=== PATIENT | female | born 1940 | race Caucasian/White ===

== ENCOUNTER → 2021-12-29 | Outpatient (CLI) | payer MEDICARE, OTHER, SELFPAY ==
[2021-12-29 10:43] LABS: Potassium 4.5 mmol/L (3.5-5.1)
== END | disposition home or self-care (01) ==
PROVIDERS: PCP Internal Medicine; Visit Provider Internal Medicine
DX: E87.5 Hyperkalemia (principal)
CPT/HCPCS: 84132

== ENCOUNTER 2023-01-27 12:09 | Emergency (ER) | payer MEDICARE, OTHER, SELFPAY ==
[2023-01-27 12:10] VITALS: BP 134/78; PULSE 78; RESP 16; TEMP 36.4; O2SAT 98; BMI 30.4
--- NOTE | 2023-01-27 12:50 | EX.ED.DYSGE1 ---
HPI History of Present Illness Chief Complaint: Lower Extremity Injury PFSH PFSH Allergy/AdvReac Type Severity Reaction Status Date / Time No Known Allergies Allergy Verified 01/27/23 12:10 Social History Smoking Status: Never smoker EXAM Physical Exam Const Vital Signs: 01/27/23 12:10 Temperature 97.6 F L Temperature Source Temporal Pulse Rate 78 Respiratory Rate 16 Blood Pressure 134/78 H Blood Pressure Mean 96 Pulse Ox 98 Oxygen Delivery Method Room Air [facility] Narrative Medical decision making narrative: HISTORY OF PRESENT ILLNESS: 82-year-old female here with left left leg pain. She notes mechanical fall from standing. Notes immediate pain over left hamstring. She not fall on her hip She denies any head trauma loss of consciousness. Patient denies active cancer, being bedridden for greater than 3 days, denies unilateral leg swelling, denies any varicose veins, denies any calf tenderness, denies any edema. Denies major surgery within 12 weeks, recent paralysis, previous DVT. REVIEW OF SYSTEMS: Pertinent positives: Leg pain Pertinent negatives: Head trauma, focal weakness PHYSICAL EXAM: Nursing triage notes reviewed, Vital signs reviewed Constitutional: please see mdm HENT: MMM Eyes: Pupils equal round and reactive to light, Extraocular muscles intact Neck: No stridor, no JVD, full neck ROM Lungs: Clear to auscultation, No wheezing or rales. No increased work of breathing, no conversational dyspnea, no accessory muscle use, no nasal flaring. No respiratory distress noted Heart: Regular rate and rhythm, No murmurs, No rubs and No gallops, 2+ distal pulses (radial, femoral, posterior tibial) in all extremities Abdomen: Soft, there is no tenderness, rigidity, rebound or guarding, no obvious peritoneal signs, no palpable pulsatile abdominal masses, no auscultated abdominal bruit Extremities: No edema,, no obvious deformity, TTP over left hamstring muscle belly. Intact quadriceps tendon complex Neuro: Intact sensation L1-S1 dermatomal distributions. Intact 5/5 strength in hip flexion (T12-L3). Knee extension (L2-L4). Ankle dorsiflexion (L4-L5). Ankle plantar flexion (S1). Great toe extension (L5). 2+ patellar and Achilles DTRs. Skin: No rash or lesions noted MEDICAL DECISION MAKING: Chief Complaint: left leg pain External records reviewed: No recent advanced imaging of the involved ALL IMAGES (IF OBTAINED) HAVE BEEN PERSONALLY REVIEWED AND INTERPRETED BY MYSELF. MDM Narrative: Patient was hemodynamically stable, afebrile, nontoxic-appearing I considered the following differential diagnosis: Bony contusion, ligamentous injury, necrotizing fasciitis, septic arthritis, fracture, dislocation, arterial occlusion, DVT. Obtain x-ray to rule out any bony injury. X-ray was reviewed by myself and showed no evidence of bony injury. Patient is likely suffering from hamstring strain. No indication for further imaging or ED evaluation at this time. The patient and/or family, caregivers express understanding. The patient and/or family, caregivers agrees with the plan. Total critical care time today provided was at least 0 minutes. This excludes separately billable procedures. Critical care time (if documented) is secondary to the patient having high probability of clinically significant/life threatening deterioration in the patient's condition which required my urgent intervention. Shared decision making: I will have a discussion with the patient and or visitors regarding risk/benefits of further testing or admission. They will be made aware of of the risk/benefits inherent in this decision they will be given the opportunity to voice understanding. Radiography Diagnostic Testing: Clinical Impression(s) from Imaging Studies Femur X-Ray 01/27/23 13:49 IMPRESSION: No acute abnormality is seen. Electronically Signed: Alberto Moreno MD at 14:13 EDT , Discharge Plan Triage Chief Complaint: Lower Extremity Injury ED Provider: Prem Mccray Dx/Rx/DC Orders Clinical Impression: Hamstring muscle strain Instructions: Treating?Strains and Sprains Primary Care Provider: Yvonne Nesbitt Referrals: Yvonne Nesbitt, [Primary Care Provider] - Activity Restrictions/Additional Instructions: Thank you for trusting us with your care today! Please take Tylenol (2 pills, 650 mg), ibuprofen (2 pills, 400 mg) every 6 hours as needed for pain and fever control. Please return to the emergency department if your symptoms change or worsen. Please follow with your primary care physician for further outpatient evaluation and management. Disposition Disposition: Home, Self Care Discharge Date/Time: 01/27/23 14:59
--- NOTE | 2023-01-27 13:49 | RAD_ITS ---
STUDY: X-RAY - LEFT FEMUR REASON FOR STUDY: Female, 82 years old. Left hip pain. TECHNIQUE: 4 view(s) of the femur. COMPARISON: None. FINDINGS: Normal visualized femur. Normal visualized soft tissue structure. 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 Mask calcification. RAD/Femur Min 2 Views IMPRESSION: No acute abnormality is seen. Electronically Signed: Alberto Moreno MD at 14:13 EDT ,
== END 2023-01-27 14:59 | disposition home or self-care (01) ==
PROVIDERS: Emergency Provider Emergency Medicine; PCP Internal Medicine; Visit Provider Emergency Medicine
DX: S76.312A Strain of muscle, fascia and tendon of the posterior muscle group at thigh level, left thigh, initial encounter (principal); W18.30XA Fall on same level, unspecified, initial encounter
CPT/HCPCS: 73552; 99282

== ENCOUNTER 2025-01-24 12:53 | Inpatient (IN) | payer MEDICARE, OTHER, SELFPAY ==
[2025-01-24] VITALS (9 sets, daily range): BP systolic 178–188; BP diastolic 90–112; PULSE 78–99; RESP 14–18; TEMP 36.8–37.2; O2SAT 94–100; BMI 31.8; BMI 28.0
--- NOTE | 2025-01-24 14:07 | ED.VIS.FALL ---
HPI <GERRY Winslow - Last Filed: 01/24/25 15:31> HPI - Fall History of Present Illness Chief Complaint: Fall Narrative Narrative: 84-year-old male was walking with a self-propelled lawnmower and while turning slipped and fell onto her right hip. She denies head injury or LOC. She states she was unable to get up and her neighbor saw her and came over after about 2 minutes and called EMS. Patient is not on blood thinners. She states there is pain in her right hip and mid thigh. She has chronic right knee pain and swelling but it does not hurt from today's fall. She has no weakness or numbness or tingling. PFSH <GERRY Winslow - Last Filed: 01/24/25 15:31> [facility] Medical History Glaucoma Diabetes Home Medications ?Medication ?Instructions ?Recorded ?Last Taken ?Type dorzolamide 22.3 mg-timolol 6.8 1 drp ophthalmic (eye) QHS eye 01/24/25 Unknown History mg/mL eye drops latanoprost 0.005 % eye drops 1 drp ophthalmic (eye) BID eye heal 01/24/25 Unknown History Allergy/AdvReac Type Severity Reaction Status Date / Time No Known Allergies Allergy Verified 01/27/23 12:10 Family History (Updated 01/24/25 @ 16:[address] Celio Mendenhall DO) Father Heart disease Social History (Updated 01/24/25 @ 16:[address] Celio Mendenhall DO) Smoking Status: Never smoker alcohol intake: never substance use type: does not use ROS <GERRY Winslow - Last Filed: 01/24/25 15:31> ROS ED ROS Narrative CVS: Negative for chest pain, syncope. Respiratory: Negative for shortness of breath. GI: Negative for abdominal pain, nausea, vomiting. Neuro: Negative for motor/sensory dysfunction. Musc: Positive for right hip pain, trauma. EXAM <GERRY Winslow - Last Filed: 01/24/25 15:31> Physical Exam Narrative Exam Narrative: CONST: Patient sitting in no acute distress. EYES: Normal inspection. HEAD: Normocephalic atraumatic. NECK: Normal inspection. No midline spinal tenderness, no step off or crepitus. RESP: No respiratory distress, CTAB. CVS: Regular rate and rhythm, no murmur, no gallop. ABD: Soft and nontender, no guarding or rebound, nondistended. Back: Normal inspection, no midline tenderness. SKIN: Color normal, no rash, warm, dry, intact. EXTREMITIES: Normal appearance of upper extremities, full range of motion, nontender, 2+ radial pulses. Right leg is shortened and externally rotated with pain in the hip with movement. Right knee is chronically swollen but nontender. No other tenderness of lower extremities is present, normal sensation, able to dorsi and plantarflex, 2+ DP pulses. NEURO: Alert and answering questions appropriately. PSYCH: Normal affect. Const Vital Signs: 01/24/25 12:56 01/24/25 13:04 01/24/25 13:54 Temperature 98.9 F Temperature Source Oral Pulse Rate 92 95 Respiratory Rate 18 14 Respiratory Effort Normal Respiratory Depth Normal Respiratory Pattern Normal Blood Pressure 179/90 H 184/99 H Blood Pressure Mean 119 127 Pulse Ox 94 98 Oxygen Delivery Method Room Air Room Air <Dr. Celio Paredes DO - Last Filed: 01/24/25 22:10> Physical Exam Const Vital Signs: 01/24/25 12:56 01/24/25 13:04 01/24/25 13:54 Temperature 98.9 F Temperature Source Oral Pulse Rate 92 95 Respiratory Rate 18 14 Respiratory Effort Normal Respiratory Depth Normal Respiratory Pattern Normal Blood Pressure 179/90 H 184/99 H Blood Pressure Mean 119 127 Pulse Ox 94 98 Oxygen Delivery Method Room Air Room Air [facility] <GERRY Winslow - Last Filed: 01/24/25 15:31> [facility] Narrative Medical decision making narrative: Consults: Orthopedics, hospitalist Differential: Hip fracture, pelvic fracture, contusion 84 old female had a mechanical fall injuring her right hip. No head injury or LOC. Arrives awake alert. She is hypertensive at 184/99 with otherwise normal vital signs. Right leg is shortened and rotated with hip pain with logroll. CMP neurovascularly intact. She has no other signs of injury. Right hip x-ray shows acute intertrochanteric fracture. I consulted Dr. Swift who requested preop labs and n.p.o. at midnight for surgery tomorrow. I discussed the case with the hospitalist for admission. Lab Data Attestation: I reviewed the patient's lab results. Labs: Laboratory Results - last 24 hr 01/24/25 15:00 WBC 7.2 RBC 4.45 Hgb 12.9 Hct 38.7 MCV 87.0 MCH 29.0 MCHC 33.3 RDW Std Deviation 40.3 RDW Coeff of Jasmin 12.7 Plt Count 262 MPV 10.6 Immature Gran % (Auto) 0.700 Neut % (Auto) 82.4 H Lymph % (Auto) 9.8 L [place] % (Auto) 6.1 Eos % (Auto) 0.4 Baso % (Auto) 0.6 Absolute Neuts (auto) 5.9 Absolute Lymphs (auto) 0.70 L Nucleated RBC % 0 Radiography Diagnostic Testing: Clinical Impression(s) from Imaging Studies Femur X-Ray 01/24/25 14:15 IMPRESSION: Nondisplaced right intertrochanteric fracture. Degenerative changes of the knee joint. Reading Location: [place] [address] Pelvis X-Ray 01/24/25 14:15 IMPRESSION: Nondisplaced oblique fracture of the intertrochanteric region of the proximal right femur with cephalic migration of the distal fracture fragment. Reading Location: [place] [address] ED attending interpretation of right hip shows intertrochanteric fracture. The femur shows no additional fractures. EKG Initial EKG: Attestation: I personally reviewed and interpreted this EKG as follows: Interpretation: Sinus Rhythm and No Acute Injury Pattern Comments: Sinus rhythm with PACs at [address] changes, no STEMI <Dr. Celio Paredes, DO - Last Filed: 01/24/25 22:10> [facility] Lab Data Labs: Laboratory Results - last 24 hr 01/24/25 15:00 WBC 7.2 RBC 4.45 Hgb 12.9 Hct 38.7 MCV 87.0 MCH 29.0 MCHC 33.3 RDW Std Deviation 40.3 RDW Coeff of Jasmin 12.7 Plt Count 262 MPV 10.6 Immature Gran % (Auto) 0.700 Neut % (Auto) 82.4 H Lymph % (Auto) 9.8 L [place] % (Auto) 6.1 Eos % (Auto) 0.4 Baso % (Auto) 0.6 Absolute Neuts (auto) 5.9 Absolute Lymphs (auto) 0.70 L Nucleated RBC % 0 Radiography Diagnostic Testing: Clinical Impression(s) from Imaging Studies Femur X-Ray 01/24/25 14:15 IMPRESSION: Nondisplaced right intertrochanteric fracture. Degenerative changes of the knee joint. Reading Location: [facility] Pelvis X-Ray 01/24/25 14:15 IMPRESSION: Nondisplaced oblique fracture of the intertrochanteric region of the proximal right femur with cephalic migration of the distal fracture fragment. Reading Location: [facility] Treatment and Re-Evaluation Narrative: I have personally performed a face to face assessment of the patient and have reviewed the ALESSANDRA Note. I performed a substantive portion of the visit including all aspects of the following. My parker findings include: History: Patient presents after a fall that occurred today. Patient fell while mowing her yard. Patient landed on her right side. Patient complains of discomfort in her right hip and thigh. Patient was unable to stand after the fall. Patient states her neighbor came out immediately after she fell. Patient denies any head injury or loss of consciousness. Patient denies any other injuries. Exam: Vital signs are stable save for an elevated blood pressure of 179/90. Patient is afebrile. Patient is in no acute distress. Oral mucosa is pink and moist. Neck is supple. Trachea is midline. Heart was regular rate and rhythm. Lungs are clear and equal bilaterally. There is good respiratory effort noted. Abdomen is soft. Bowel sounds are normal. There is no tenderness. There is mild tenderness over the right hip and femur. The right lower extremity is shortened and externally rotated. Range of motion was limited in all motions of the right lower extremity secondary to pain. There is pain with internal and external rotation of the right lower extremity. Pedal pulses are equal bilaterally. Sensation was intact to light touch in all digits. Medical Decision Making: Differential diagnosis includes hip fracture, contusion, and sprain. X-rays of the right femur and pelvis will be obtained to assess for fracture. X-rays of the pelvis were reviewed. There is 1 view. On my independent interpretation, there is a intertrochanteric fracture of the right hip. There is some mild displacement of the distal fragment. Radiologist also interpreted the x-ray and agrees. X-rays of the right femur were obtained. There are 4 views. On my independent interpretation, there is an intertrochanteric fracture of the right hip. There are degenerative changes of the right knee. Radiologist also interpreted the x-rays and agrees. EKG was obtained to assess for cardiac dysrhythmia and cardiac ischemia. On my independent interpretation, it showed normal sinus rhythm with occasional PACs with a rate of 98. There are nonspecific ST-T wave changes. There there is no ST elevation. Case was discussed with the hospitalist. He will admit the patient to his service. Case was discussed with Dr. Swift from orthopedics. He recommended keeping the patient n.p.o. after midnight. He will see the patient in the hospital. Patient understood and was agreeable with the plan. All questions were answered. Discharge Plan Dx/Rx/DC Orders Clinical Impression: Closed fracture of right hip, Fall Disposition Disposition: Acute Care Hospital [facility] Discharge Date/Time: 01/24/25 18:25
--- NOTE | 2025-01-24 14:15 | RAD_ITS ---
PROCEDURE: PELVIS 1 OR 2 VIEWS 01/24/2025 REASON FOR EXAM: PAIN Fall. TECHNIQUE: PELVIS 1 OR 2 VIEWS COMPARISON: None FINDINGS: Oblique fracture of the intertrochanteric region of the proximal right femur with cephalic migration of the distal fracture fragment. Fecal material is seen in the colon. RAD/Pelvis 1 or 2 Views IMPRESSION: Nondisplaced oblique fracture of the intertrochanteric region of the proximal r ight femur with cephalic migration of the distal fracture fragment. Reading Location: [facility]
--- NOTE | 2025-01-24 14:15 | RAD_ITS ---
PROCEDURE: FEMUR MIN 2 VIEWS 01/24/2025 REASON FOR EXAM: PAIN History of fall. TECHNIQUE: FEMUR MIN 2 VIEWS COMPARISON: None FINDINGS: Nondisplaced right intertrochanteric fracture. Degenerative changes of the knee joint. RAD/Femur Min 2 Views IMPRESSION: Nondisplaced right intertrochanteric fracture. Degenerative changes of the knee joint. Reading Location: [facility]
[2025-01-24 15:15] LABS: Hematocrit 38.7 % (37-47); Hemoglobin 12.9 g/dL (12.0-15.0); Immature Granulocytes Count 0.050 X10^3/uL (0.0-0.0); Mean Corp Hgb Conc 33.3 g/dL (32-36); Mean Corpuscular Volume 87.0 fL (81-99); Mean Platelet Vol. 10.6 fl (6.2-12.0); NRBC Flagged by Analyzer 0 % (0-5); Platelet Count 262 K/mm3 (150-450); RBC Distribution Width CV 12.7 % (11.6-14.6); RBC Distribution Width SD 40.3 fl (35.1-43.9); Red Blood Count 4.45 M/mm3 (4.2-5.4); White Blood Count 7.2 K/mm3 (4.4-11.0)
[2025-01-24 15:30] LABS: Prothrombin Time (Protime)PT. 13.7 SECONDS (11.7-14.9)
--- NOTE | 2025-01-24 16:13 | PCM.HP.STD ---
HPI - General General Date of Service: 01/24/25 Chief Complaint: Fall and right hip pain HPI Narrative [place], is a 84 F who presents with hip pain after a fall. Is an 84-year-old female with diabetes who does not take medications was in her yard and twisted her hip and then fell landing on her right side pain. Presented to the emergency room and was noted to have a nondisplaced oblique fracture of the intertrochanteric region of the proximal right femur with cephalic migration of the distal fracture fragment. Dr. Swift of orthopedics was contacted and will see the patient in consultation. [facility] Medical History Glaucoma Diabetes Allergy/AdvReac Type Severity Reaction Status Date / Time No Known Allergies Allergy Verified 01/27/23 12:10 Family History (Updated 01/24/25 @ 16:[address] Celio Mendenhall DO) Father Heart disease Social History (Updated 01/24/25 @ 16:[address] Celio Mendenhall DO) Smoking Status: Never smoker alcohol intake: never substance use type: does not use ROS ROS Narrative All review of systems were negative except as mentioned above in the history of present illness and the other review of systems. Vital Signs Vital Signs Vital Signs: 01/24/25 12:56 01/24/25 13:04 01/24/25 13:54 Temperature 37.2 C Temperature Source Oral Pulse Rate 92 95 Respiratory Rate 18 14 Respiratory Effort Normal Respiratory Depth Normal Respiratory Pattern Normal Blood Pressure 179/90 H 184/99 H Blood Pressure Mean 119 127 Pulse Ox 94 98 Oxygen Delivery Method Room Air Room Air 01/24/25 15:00 Temperature Temperature Source Pulse Rate 96 Respiratory Rate 18 Respiratory Effort Respiratory Depth Respiratory Pattern Blood Pressure 178/110 H Blood Pressure Mean 132 Pulse Ox 96 Oxygen Delivery Method Room Air Weight Weight: 78.9 kg Body Mass Index (BMI) 31.8 Physical Exam Narrative - Physical Exam General: Alert, Oriented x3, Cooperative HEENT: Atraumatic, PERRLA, EOMI, Normocephalic Oral: Very poor dentition. Neck: Supple, No JVD, Negative Carotid Bruits Lungs: Clear to auscultation, Normal air movement Cardiovascular: Regular rate, Normal S1, Normal S2, No murmurs Abdomen: Bowel Sounds Present, Soft, Non Tender, Non-Distended, No Hepato-splenomegaly Extremities: Shortened right lower extremity.. Skin: No rashes, No breakdown Musculoskeletal: No Tenderness to Palpation of Joints or Extremities Neurological: Neuro grossly intact Psych/Mental Status: Normal Affect, Appropriate Results Lab / Micro Data Attestation: I reviewed the patient's lab results. 01/24/25 15:00 01/24/25 15:00 Labs: Laboratory Results - last 24 hr 01/24/25 15:00: WBC 7.2, RBC 4.45, Hgb 12.9, Hct 38.7, MCV 87.0, MCH 29.0, MCHC 33.3, RDW Std Deviation 40.3, RDW Coeff of Jasmin 12.7, Plt Count 262, MPV 10.6, Immature Gran % (Auto) 0.700, Neut % (Auto) 82.4 H, Lymph % (Auto) 9.8 L, [place] % (Auto) 6.1, Eos % (Auto) 0.4, Baso % (Auto) 0.6, Absolute Neuts (auto) 5.9, Absolute Lymphs (auto) 0.70 L, Nucleated RBC % 0, PT 13.7, INR 1.0, Blood Type A POSITIVE, Antibody Screen NEGATIVE EKG Initial EKG: Attestation: I personally reviewed and interpreted this EKG as follows: Prior EKG tracings: available for review Imaging Radiology Impression Femur X-Ray 01/24/25 14:15 IMPRESSION: Nondisplaced right intertrochanteric fracture. Degenerative changes of the knee joint. Reading Location: [facility] Pelvis X-Ray 01/24/25 14:15 IMPRESSION: Nondisplaced oblique fracture of the intertrochanteric region of the proximal right femur with cephalic migration of the distal fracture fragment. Reading Location: [facility] Assessment & Plan Assessment/Plan (1) Closed fracture of right hip: PLAN: Status post mechanical fall. Bedrest for now. Pain control. Check 25-hydroxy vitamin D level Consult orthopedics. Patient has a good performance status at baseline does not have any chest pain or palpitations. Will with remainder of her lab work but patient should be medically ready for surgery PLAN: Plan Diabetes mellitus type 2: Has an A1c reported of 13. She has refused medications including insulin in the past because of side effects. She said the side effects of it have some ado of heart attack or stroke. I asked her specifically what her concerns were but she cannot informing what side effects she was actually worried about. I discussed with her the very importance of being on insulin given reported history of A1c that high. She said that she will comply with what we recommend while she is in the hospital but made no promise that she would continue that when she is discharged. I did try to reassure her that we would be checking her blood sugar when she was here. Glucose was 329 a BMP. Will start glargine 15 units nightly with first dose tonight. Hypertension: May be reactive but unclear if she does have chronic primary hypertension. Will monitor for now. VTE prophylaxis: SCDs for now. CODE STATUS: Addressed with the patient. Patient wishes to be DNR Comfort Care arrest. Explained the patient that she may change her mind at any point if she still wishes. Case discussed with the patient's nephew is present at bedside. Charges/Coding Visit Charges Inpatient E&M: 32232 Init Hosp L2
[2025-01-24 16:29] LABS: Anion Gap 14 (5-15); BUN 18 mg/dL (4-19); BUN/Creat Ratio 29.8 RATIO (10-20); Calcium,Total 9.3 mg/dL (7.6-11.0); Carbon Dioxide 22.5 mmol/L (21.0-32.0); Chloride 101 mmol/L (98-108); Estimated Creatinine Clearance 49.10 ml/min (50-250); Glucose 329 mg/dL (70-99); Potassium 4.2 mmol/L (3.3-5.1)
--- NOTE | 2025-01-24 17:06 | CON.PCM.OR_ITS ---
HPI Consult Data Date of Consult: 01/24/25 HPI Narrative Reason for Consultation: Right hip fracture HPI Narrative: GOOD CASAS, is a 84 F who presented to [facility] emergency department today after mechanical ground-level fall onto her right hip. She denies any antecedent right hip or groin pain. Denies head injury or loss consciousness or syncopal symptoms. Community ambulator without assistive device. X-rays were obtained demonstrated a right intertrochanteric femur fracture. She is admitted to the service of the hospitalist. I saw patient in consultation. At time my examination, she reports no pain at rest. She denies any other new injuries. Denies numbness or tingling. Denies fevers, chills, nausea or vomiting, chest pain or shortness of breath. Denies any anesthetic complication in the past. Denies history of DVT or PE. [facility] Medical History Glaucoma Diabetes Allergy/AdvReac Type Severity Reaction Status Date / Time No Known Allergies Allergy Verified 01/27/23 12:10 Family History (Updated 01/24/25 @ 16:[address] Celio Mendenhall DO) Father Heart disease Social History (Updated 01/24/25 @ 16:[address] Celio Mendenhall DO) Smoking Status: Never smoker alcohol intake: never substance use type: does not use ROS ROS Narrative 12 point review of systems obtained, negative unless otherwise noted in HPI. Vital Signs Vital Signs Vital Signs: 01/24/25 12:56 01/24/25 13:04 01/24/25 13:54 Temperature 98.9 F Temperature Source Oral Pulse Rate 92 95 Respiratory Rate 18 14 Respiratory Effort Normal Respiratory Depth Normal Respiratory Pattern Normal Blood Pressure 179/90 H 184/99 H Blood Pressure Mean 119 127 Pulse Ox 94 98 Oxygen Delivery Method Room Air Room Air 01/24/25 15:00 Temperature Temperature Source Pulse Rate 96 Respiratory Rate 18 Respiratory Effort Respiratory Depth Respiratory Pattern Blood Pressure 178/110 H Blood Pressure Mean 132 Pulse Ox 96 Oxygen Delivery Method Room Air Weight Weight: 173 lb 15.115 oz Body Mass Index (BMI) 31.8 Physical Exam Narrative General -A&Ox3, NAD, appears stated age. Vital signs stable, afebrile. Respiratory -normal work of breathing, no intercostal retractions. CV -pulses regular, brisk capillary refill ?4 limbs. Abdomen-soft, nontender, nondistended. No guarding, rigidity, rebound tenderness. Musculoskeletal/neurologic -full range of motion nontender throughout bilateral upper extremities, left lower extremity with full sensation and strength in all dermatomes and myotomes. No midline cervical tenderness. Right lower extremity-shortened, externally rotated and abducted. Pain with logroll of the right lower extremity. Nontender throughout the right knee femoral shaft, tibial shaft and right foot/ankle. Brisk capillary refill. Sensation intact light touch L3-S1 dermatomes. DF, PF, EHL intact. DP, PT 2+. Pelvis is stable, nontender. Skin is intact without lacerations, abrasions. No ecchymosis noted. Lab / Micro Data 01/24/25 15:00 01/24/25 15:00 Labs: Laboratory Results - last 24 hr 01/24/25 15:00: WBC 7.2, RBC 4.45, Hgb 12.9, Hct 38.7, MCV 87.0, MCH 29.0, MCHC 33.3, RDW Std Deviation 40.3, RDW Coeff of Jasmin 12.7, Plt Count 262, MPV 10.6, Immature Gran % (Auto) 0.700, Neut % (Auto) 82.4 H, Lymph % (Auto) 9.8 L, Clarke % (Auto) 6.1, Eos % (Auto) 0.4, Baso % (Auto) 0.6, Absolute Neuts (auto) 5.9, A bsolute Lymphs (auto) 0.70 L, Nucleated RBC % 0, PT 13.7, INR 1.0, Sodium 137, Potassium 4.2, Chloride 101, Carbon Dioxide 22.5, Anion Gap 14, BUN 18, C reatinine 0.62 L, Estim Creat Clear Calc 49.10 L, Est GFR (MDRD) Non-Af 87, B UN/Creatinine Ratio 29.8 H, Glucose 329 H, Calcium 9.3, Blood Type A POSITIVE, Antibody Screen NEGATIVE Imaging Radiology Impression Femur X-Ray 01/24/25 14:15 IMPRESSION: Nondisplaced right intertrochanteric fracture. Degenerative changes of the knee joint. Reading Location: [facility]-IR-1 Pelvis X-Ray 01/24/25 14:15 IMPRESSION: Nondisplaced oblique fracture of the intertrochanteric region of the proximal right femur with cephalic migration of the distal fracture fragment. Reading Location: [facility]-1 Assessment & Plan Assessment/Plan (1) Closed fracture of right hip: QUALIFIERS: Encounter type: initial encounter Qualified Code(s): S72.001A - Fracture of unspecified part of neck of right femur, initial encounter for closed fracture PLAN: Patient sustained a right intertrochanteric proximal femur fracture. -Closed, neurovascularly intact -Isolated injury -Recommending surgical intervention in the form of right femur cephalomedullary nailing -I discussed the procedure-its risks, benefits and alternative. Risks include but are not limited to bleeding, infection, loss of life or limb, risk of anesthesia, persistent pain or disability, need for additional surgery, nonunion, malunion, failure of orthopedic hardware, neurovascular injury, DVT or PE. Patient expressed understanding these risks and wished to proceed with surgery. -Maintenance IV fluids, clear liquid diet after midnight n.p.o. at 2 hours prior to surgery -Medical optimization per primary -Type and screen -2 g Ancef, 1 g IV TXA on-call to the OR -Bedrest, heel protectors -Plan to proceed with surgery tomorrow when OR becomes available Thank you for this consultation.
--- NOTE | 2025-01-24 18:55 | CASEMGMT ---
Care Management Face to Face with patient for initial transition planning/care coordination assessment in the ED.? This loan underwriter introduced self and role at [facility]. Patient alert and oriented. Patient willing to participate in assessment and is able to answer all questions appropriately.? Care providers, pharmacy, and demographics verified. Admitting Diagnosis: ?closed fx right hip Other diagnosis history: ?Glaucoma, diabetes PCP: ?[facility] Specialists: ?None Preferred Pharmacy:? [facility] Insurance: ?Medicare Prescription Benefit: ?yes Living Will/HPOA: ?both completed LNOK: ?nephew Living Arrangements: ?lives alone in a 2 story home, lives on the first floor.? ?Has a ramp into home with one step to enter, has freezers in her basement with 12 steps down. Patient independent with ADLs and IADLs Transportation: ?Patient drives DME: ?None HHC: None SNF/Rehab: ?None Community Resources: ?None Behavioral Health History: ?None Patient goals: Discharge plans uncertain.? Disposition Plan: admission to acute; RN CM/SW to follow for discharge planning needs that may arise. Kinsey Nicholson, CHIEF DEPUTY SHERIFF, SUPERVISOR HEAT TREATING
[2025-01-24 20:15] LABS: AST(SGOT) 18 U/L (<=31); Alanine Aminotransfer ALT/SGPT 20 U/L (<=34); Albumin, Serum 4.1 g/dL (3.4-4.8); Alkaline Phosphatase 86 U/L (35-104); Anion Gap 16 (5-15); BUN 15 mg/dL (4-19); BUN/Creat Ratio 24.0 RATIO (10-20); Calcium,Total 9.4 mg/dL (7.6-11.0); Carbon Dioxide 22.3 mmol/L (21.0-32.0); Chloride 98 mmol/L (98-108); Estimated Creatinine Clearance 46.08 ml/min (50-250); Globulin 3.1 g/dL (2.2-4.2); Glucose 334 mg/dL (70-99); Potassium 4.0 mmol/L (3.3-5.1)
[2025-01-24] MEDS: Insulin Glargine-YFGN 100 UNIT/ML Pen 15 UNIT SC (21:30)
[2025-01-24 21:46] LABS: Vitamin D,25 Hydroxy 52.8 ng/mL (30-100)
[2025-01-24] MEDS: Dorzolamide HCL/Timolol 10 ml Bottle 1 DRP OPHTHALMIC (22:43)
[2025-01-24] MEDS: Latanoprost 0.005% 1 Bottle 1 DRP OPHTHALMIC (22:44)
[2025-01-24] MEDS: Senna/Docusate Sodium 1 Tablet 2 TABLET PO (23:00)
[2025-01-25] VITALS (20 sets, daily range): BP systolic 78–173; BP diastolic 57–91; PULSE 68–117; RESP 16–22; TEMP 36.3–37.1; O2SAT 88–100; BMI 27.8
[2025-01-25 06:07] LABS: Hematocrit 38.6 % (37-47); Hemoglobin 12.8 g/dL (12.0-15.0); Immature Granulocytes Count 0.050 X10^3/uL (0.0-0.0); Mean Corp Hgb Conc 33.2 g/dL (32-36); Mean Corpuscular Volume 88.1 fL (81-99); Mean Platelet Vol. 11.3 fl (6.2-12.0); NRBC Flagged by Analyzer 0 % (0-5); Platelet Count 276 K/mm3 (150-450); RBC Distribution Width CV 12.8 % (11.6-14.6); RBC Distribution Width SD 41.4 fl (35.1-43.9); Red Blood Count 4.38 M/mm3 (4.2-5.4); White Blood Count 9.2 K/mm3 (4.4-11.0)
[2025-01-25 06:14] LABS: Prothrombin Time (Protime)PT. 14.6 SECONDS (11.7-14.9)
--- NOTE | 2025-01-25 07:17 | PN.HOSP_ITS ---
Reason for Visit Reason for Visit: Diagnoses Fracture of unspecified part of neck of right femur, initial encounter for closed fracture (01/24/25) Subjective Subjective No new issues overnight. On her way to surgery this AM. Objective Data Objective Data Vital Signs: Vital Signs Temp Pulse Resp BP Pulse Ox O2 Del Method 36.8 C 96 16 158/88 H 97 Room Air 01/25/25 01:59 01/25/25 02:00 01/25/25 01:59 01/25/25 01:59 01/25/25 01:59 01/25/25 01:59 Oxygen Delivery Method Room Air Weight: 69.4 kg Body Mass Index (BMI) 28.0 Intake & Output: Intake and Output for Last 24 Hours 01/23/25 01/24/25 01/25/25 23:59 23:59 23:59 Intake Total 400 / 400 Output Total 500 / 500 Balance -100 / -100 Lab / Micro Data 01/25/25 05:10 01/24/25 19:41 Labs: Laboratory Results - last 24 hr 01/24/25 15:00: WBC 7.2, RBC 4.45, Hgb 12.9, Hct 38.7, MCV 87.0, MCH 29.0, MCHC 33.3, RDW Std Deviation 40.3, RDW Coeff of Jasmin 12.7, Plt Count 262, MPV 10.6, Immature Gran % (Auto) 0.700, Neut % (Auto) 82.4 H, Lymph % (Auto) 9.8 L, Glenn % (Auto) 6.1, Eos % (Auto) 0.4, Baso % (Auto) 0.6, Absolute Neuts (auto) 5.9, A bsolute Lymphs (auto) 0.70 L, Nucleated RBC % 0, PT 13.7, INR 1.0, Sodium 137, Potassium 4.2, Chloride 101, Carbon Dioxide 22.5, Anion Gap 14, BUN 18, C reatinine 0.62 L, Estim Creat Clear Calc 49.10 L, Est GFR (MDRD) Non-Af 87, B UN/Creatinine Ratio 29.8 H, Glucose 329 H, Calcium 9.3, Blood Type A POSITIVE, Antibody Screen NEGATIVE 01/24/25 19:41: Sodium 136, Potassium 4.0, Chloride 98, Carbon Dioxide 22.3, A nion Gap 16 H, BUN 15, Creatinine 0.63 L, Estim Creat Clear Calc 46.08 L, Est GFR (MDRD) Non-Af 87, BUN/Creatinine Ratio 24.0 H, Glucose 334 H, Calcium 9.4, Total Bilirubin 0.61, AST 18, ALT 20, Alkaline Phosphatase 86, Total Protein 7.2, Albumin 4.1, Globulin 3.1, Albumin/Globulin Ratio 1.3, Vitamin D 25-Hydroxy 52.8 01/24/25 21:28: POC Glucose 375 H 01/25/25 05:10: WBC 9.2, RBC 4.38, Hgb 12.8, Hct 38.6, MCV 88.1, MCH 29.2, MCHC 33.2, RDW Std Deviation 41.4, RDW Coeff of Jasmin 12.8, Plt Count 276, MPV 11.3, Immature Gran % (Auto) 0.500, Neut % (Auto) 82.8 H, Lymph % (Auto) 9.0 L, Glenn % (Auto) 7.3, Eos % (Auto) 0.1, Baso % (Auto) 0.3, Absolute Neuts (auto) 7.7, Absolute Lymphs (auto) 0.83, Nucleated RBC % 0, PT 14.6, INR 1.1, Hemoglobin A1c 13.6 H Radiography Diagnostic Testing: Radiology Impression Femur X-Ray 01/24/25 14:15 IMPRESSION: Nondisplaced right intertrochanteric fracture. Degenerative changes of the knee joint. Reading Location: [facility]-IR-1 Pelvis X-Ray 01/24/25 14:15 IMPRESSION: Nondisplaced oblique fracture of the intertrochanteric region of the proximal right femur with cephalic migration of the distal fracture fragment. Reading Location: [facility]-1 Physical Exam Const alert Constitutional Narrative: Seen before surgery. Patient was lying in bed with shortened right lower extremity compared to her left. No respiratory stress. No conversational dyspnea. HEENT head/scalp atraumatic Resp normal respiratory effort and no retractions Extremity normal to inspection Neuro Sensorium / Orientation: awake and alert Assessment & Plan Assessment/Plan (1) Closed fracture of right hip: QUALIFIERS: Encounter type: initial encounter Qualified Code(s): S72.001A - Fracture of unspecified part of neck of right femur, initial encounter for closed fracture PLAN: Status post mechanical fall. Bedrest for now. Pain control. 25-hydroxy vitamin D level 52.8. Will start ergocalciferol. Consult orthopedics. Patient has a good performance status at baseline does not have any chest pain or palpitations. Medically stable for surgery. PLAN: Plan Diabetes mellitus type 2, uncontrolled: * A1c 13.6. * She has refused outpatient medications including insulin in the past because of side effects. She said the side effects of it have some ado of heart attack or stroke. I asked her specifically what her concerns were but she cannot informing what side effects she was actually worried about. I discussed with her the very importance of being on insulin given reported history of A1c that high. She said that she will comply with what we recommend while she is in the hospital but made no promise that she would continue that when she is discharged. I did try to reassure her that we would be checking her blood sugar when she was here. * Continue glargine, anticipate up titrating, but awaiting AM labs. Currently NPO for surgery. Hypertension: * elevated while here. Will start ACEi. PRN hydralazine VTE prophylaxis: SCDs for now. CODE STATUS: Addressed with the patient. Patient wishes to be DNR Comfort Care arrest. Explained the patient that she may change her mind at any point if she still wishes. Disposition: eventually to SNF. Charges/Coding Visit Charges Inpatient E&M: 75380 Subs Hosp L2
[2025-01-25] MEDS: Latanoprost 0.005% 1 Bottle 1 DRP OPHTHALMIC ×2 (09:15→22:05)
--- NOTE | 2025-01-25 09:29 | PCM.PRE.AN2 ---
ASA Classification* ASA Classification ASA Classification: 2 and E Assessment & Plan Anesthesia* Anesthesia Assessment Anesthesia Assessment: Discussed sedation and/or anesthesia options, risks, benefits, and alternatives with patient/parents/legal guardian/POA. Questions invited. The patient/parents/legal guardian/POA seems to understand and agrees to proceed with anesthesia plan. Reviewed the physical assessment, medical history, allergy history and patient home medications list prior to surgery/procedure/anesthetic and documented any changes. Performed airway and anesthesia risk assessments. Anesthesia Type Anesthesia Type: General Anesthesia Focused Assessment* Temperature: 98.2 F Pulse Rate: 96 Blood Pressure: 158/88 Respiratory Rate: 16 Pulse Ox: 97 Airway Assessment Mouth opens: >3 cm Mallampati Score: II Labs Anesthesia Preop lab: CBC WBC 9.2 K/mm3 (4.4-11.0) 01/25/25 05:10 01/25/25 RBC 4.38 M/mm3 (4.2-5.4) 01/25/25 05:10 01/25/25 Hgb 12.8 g/dL (12.0-15.0) 01/25/25 05:10 01/25/25 Hct 38.6 % (37-47) 01/25/25 05:10 01/25/25 Plt Count 276 K/mm3 (150-450) 01/25/25 05:10 01/25/25 CHEMISTRY Potassium 4.0 mmol/L (3.3-5.1) 01/24/25 19:41 01/24/25 Sodium 136 mmol/L (133-145) 01/24/25 19:41 01/24/25 BUN 15 mg/dL (4-19) 01/24/25 19:41 01/24/25 Creatinine 0.63 mg/dL (0.70-1.20) L 01/24/25 19:41 01/24/25 Glucose 334 mg/dL (70-99) H 01/24/25 19:41 01/24/25 POC Glucose 272 mg/dL (74-106) H 01/25/25 06:21 01/25/25 COAG PT 14.6 SECONDS (11.7-14.9) 01/25/25 05:10 01/25/25 Pre-Assessment Diagnosis/Proposed Procedure Planned Operative Procedure(s): Gamma Nail Right Hip fracture Anesthesia History Anesthesia History - superintendent division: Anesthesia History - superintendent division Hx Hospitalization Any Problems With Anesthesia No 01/25/25 04:18 Cholinesterase deficiency No 01/25/25 04:18 You/Your Family Experience No 01/25/25 04:18 fever (hyperthermia) with Relationship Recent Exposure to Contagious No 01/25/25 04:18 Disease Does patient have nerve No 01/25/25 04:18 stimulator Patient instructed to have device shut off --Does patient have Pacemaker or ICD? When Was Last Pacemaker Check QUESTION #4 FULL TEXT: You/Your Family Experience fever (hyperthermia) with Anesthesia Last Oral Intake Last Oral intake: Last Oral Intake NPO since Meds taken in AM with sips of water? Meds patient instructed to take am of surgery PONV PONV - superintendent division: PONV - superintendent division Female HX of Motion Sickness HX of N/V After Surgery Non-Smoker Duration of Surgery greater than 60 minutes Number of Risk Factors PONV Score Height & Weight Height & Weight: Anesthesia: Height & Weight Height 5 ft 2 in 01/24/25 18:39 Weight: 69.4 kg 01/24/25 18:39 Body Mass Index (BMI) 28.0 01/24/25 18:39 Respiratory Assessment Respiratory Assessment - superintendent division: Respiratory Tract Infection Hx - superintendent division Hx Respiratory Tract Infection No 01/25/25 04:18 STOP Sleep Apnea STOP Sleep Apnea - superintendent division: STOP Sleep Apnea - superintendent division Hx Hypertension Yes 01/24/25 18:49 Hx Sleep Apnea No 01/24/25 18:49 CPAP BIPAP Do you snore loudly (louder No 01/24/25 18:49 than talking or can be heard Do you often feel tired/ No 01/24/25 18:49 fatigued/ sleepy during daytime? Has anyone observed you stop No 01/24/25 18:49 breathing during sleep? STOP Results Negative 01/24/25 18:49 QUESTION #5 FULL TEXT : Do you snore loudly (louder than talking or can be heard through closed doors)? 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 Specify any problems Hx of Preganancy in last 3 N/A 01/24/25 18:49 Months Nurse Filling Out Transfusion ALEC 01/24/25 18:49 & Questions: Date: 01/24/25 01/24/25 18:49 Time: 18:50 01/24/25 18:49 Patient unable to answer at this time (ie. confused, unrespo /Reproduction History /Reproductive History - superintendent division: /Reproductive Hx- superintendent division Hx Now No 01/25/25 04:18 Gestational Age (in weeks): EDC: Hx Hx Para Hx Section SAB No 01/25/25 04:18 Active Medications Active Medications: Current Medications Generic Name Dose Route Start Last Admin Trade Name Freq PRN Reason Stop Dose Admin Acetaminophen 650 mg 01/24/25 18:37 01/24/25 20:14 Acetaminophen 325 Mg Tablet PO 650 mg Q6H PRN PRN Administration Pain 1-10 Or Fever >100.7 Dorzolamide/Timolol 1 drp 01/24/25 22:00 01/24/25 22:43 Dorzolamide Hcl/Timolol 10 Ml Bottle OPHTHALMIC 1 drp QHS ISABELA Administration Glucagon 1 mg 01/24/25 18:37 Glucagon 1 Mg/Ml Syringe IM X1 PRN Hypoglycemia Protocol Hydralazine HCl 10 mg 01/25/25 07:23 Hydralazine 20 Mg/Ml Vial IV Q4H PRN PRN SBP GREATER THAN 180 Protocol Dextrose 250 mls @ 0 mls/hr 01/24/25 18:37 Dextrose 10%-Water IV .Q0M PRN HYPOGLYCEMIA Protocol As Directed Sodium Chloride 250 mls @ 15 mls/hr 01/24/25 18:40 IV .[id number] PRN Saline Flush Sodium Chloride 250 mls @ 15 mls/hr 01/24/25 18:40 IV .[id number] PRN Additional IVPB Infusion Insulin Glargine 15 unit 01/24/25 22:00 01/24/25 21:30 Insulin Glargine-Yfgn 100 Unit/Ml Pen SC 15 unit QHS ISABELA Administration Insulin Human Lispro 0 unit 01/24/25 22:00 01/25/25 06:23 Insulin Lispro 100 Unit/Ml Insuln.Pen SC 3 unit ACHS ISABELA Administration Protocol Latanoprost 1 drp 01/24/25 22:00 01/25/25 09:15 Latanoprost 0.005% 1 Bottle OPHTHALMIC 1 drp BID ISABELA Administration Lisinopril 20 mg 01/25/25 10:00 01/25/25 09:15 Lisinopril 20 Mg Tablet PO Not Given DAILY [facility] Protocol Morphine Sulfate 2 - 4 mg 01/24/25 18:37 01/25/25 09:12 Morphine 2 Mg/Ml Syringe IV 4 mg Q3H PRN PRN Administration Pain Score 6-10 Morphine Sulfate 2 - 4 mg 01/24/25 18:53 Morphine 4 Mg/Ml Syringe IV Q3H PRN PRN Pain Score 6-10 Ondansetron HCl 4 mg 01/24/25 18:37 Ondansetron 4 Mg/2 Ml Vial IV Q8H PRN PRN NAUSEA/VOMITING Oxycodone HCl 5 mg 01/24/25 18:37 Oxycodone 5 Mg Tablet PO Q4H PRN PRN Pain Score 4-10 Prochlorperazine Edisylate 5 mg 01/24/25 18:37 Prochlorperazine 10 Mg/2 Ml Vial IV Q4H PRN PRN Breakthrough nausea/vomiting Senna/Docusate Sodium 2 tablet 01/24/25 22:00 01/25/25 09:15 Senna/Docusate Sodium 1 Tablet PO Not Given BID [facility] Sodium Chloride 10 - 40 ml 01/24/25 18:40 0.9% Saline Lock 10 Ml Syringe IV UD PRN SALINE FLUSH PFSH Medical History Glaucoma Diabetes Home Medications ?Medication ?Instructions ?Recorded ?Last Taken ?Type dorzolamide 22.3 mg-timolol 6.8 1 drp ophthalmic (eye) QHS eye 01/24/25 Unknown History mg/mL eye drops latanoprost 0.005 % eye drops 1 drp ophthalmic (eye) BID eye heal 01/24/25 Unknown History Allergy/AdvReac Type Severity Reaction Status Date / Time No Known Allergies Allergy Verified 01/27/23 12:10 Family History Father Heart disease Social History Smoking Status: Never smoker alcohol intake: never substance use type: does not use Review of Systems (Anesthesia) ROS Narrative System reviewed and no additional complaints, except as documented.
--- NOTE | 2025-01-25 09:42 | PN.ORTHO_ITS ---
Subjective Subjective Patient seen and examined. Denies any new complaints. Okay with blood transfusion if needed. Patient reports difficulty with glycemic control in the past. Denies fevers, chills and nausea vomiting, chest pain or shortness of breath. Objective Data Objective Data Vital Signs: Vital Signs Temp Pulse Resp BP Pulse Ox O2 Del Method 98.2 F 96 16 158/88 H 97 Room Air 01/25/25 09:30 01/25/25 09:30 01/25/25 09:30 01/25/25 09:30 01/25/25 09:30 01/25/25 08:00 Oxygen Delivery Method Room Air Weight: 152 lb 5.431 oz Body Mass Index (BMI) 27.8 Intake & Output: Intake and Output for Last 24 Hours 01/23/25 01/24/25 01/25/25 23:59 23:59 23:59 Intake Total 400 / 400 Output Total 500 / 500 Balance -100 / -100 Lab / Micro Data 01/25/25 05:10 01/24/25 19:41 Labs: Laboratory Results - last 24 hr 01/24/25 15:00: WBC 7.2, RBC 4.45, Hgb 12.9, Hct 38.7, MCV 87.0, MCH 29.0, MCHC 33.3, RDW Std Deviation 40.3, RDW Coeff of Jasmin 12.7, Plt Count 262, MPV 10.6, Immature Gran % (Auto) 0.700, Neut % (Auto) 82.4 H, Lymph % (Auto) 9.8 L, [place] % (Auto) 6.1, Eos % (Auto) 0.4, Baso % (Auto) 0.6, Absolute Neuts (auto) 5.9, A bsolute Lymphs (auto) 0.70 L, Nucleated RBC % 0, PT 13.7, INR 1.0, Sodium 137, Potassium 4.2, Chloride 101, Carbon Dioxide 22.5, Anion Gap 14, BUN 18, C reatinine 0.62 L, Estim Creat Clear Calc 49.10 L, Est GFR (MDRD) Non-Af 87, B UN/Creatinine Ratio 29.8 H, Glucose 329 H, Calcium 9.3, Blood Type A POSITIVE, Antibody Screen NEGATIVE 01/24/25 19:41: Sodium 136, Potassium 4.0, Chloride 98, Carbon Dioxide 22.3, A nion Gap 16 H, BUN 15, Creatinine 0.63 L, Estim Creat Clear Calc 46.08 L, Est GFR (MDRD) Non-Af 87, BUN/Creatinine Ratio 24.0 H, Glucose 334 H, Calcium 9.4, Total Bilirubin 0.61, AST 18, ALT 20, Alkaline Phosphatase 86, Total Protein 7.2, Albumin 4.1, Globulin 3.1, Albumin/Globulin Ratio 1.3, Vitamin D 25-Hydroxy 52.8 01/24/25 21:28: POC Glucose 375 H 01/25/25 05:10: WBC 9.2, RBC 4.38, Hgb 12.8, Hct 38.6, MCV 88.1, MCH 29.2, MCHC 33.2, RDW Std Deviation 41.4, RDW Coeff of Jasmin 12.8, Plt Count 276, MPV 11.3, Immature Gran % (Auto) 0.500, Neut % (Auto) 82.8 H, Lymph % (Auto) 9.0 L, [place] % (Auto) 7.3, Eos % (Auto) 0.1, Baso % (Auto) 0.3, Absolute Neuts (auto) 7.7, Absolute Lymphs (auto) 0.83, Nucleated RBC % 0, PT 14.6, INR 1.1, Hemoglobin A1c 13.6 H 01/25/25 06:21: POC Glucose 272 H Radiography Diagnostic Testing: Radiology Impression Femur X-Ray 01/24/25 14:15 IMPRESSION: Nondisplaced right intertrochanteric fracture. Degenerative changes of the knee joint. Reading Location: [facility]--1 Pelvis X-Ray 01/24/25 14:15 IMPRESSION: Nondisplaced oblique fracture of the intertrochanteric region of the proximal right femur with cephalic migration of the distal fracture fragment. Reading Location: [facility]--1 Physical Exam Narrative General -A&Ox3, NAD, appears stated age. Vital signs stable, afebrile. Respiratory -normal work of breathing, no intercostal retractions. CV -pulses regular, brisk capillary refill ?4 limbs. Abdomen-soft, nontender, nondistended. No guarding, rigidity, rebound tenderness. Musculoskeletal/neurologic -full range of motion nontender throughout bilateral upper extremities, left lower extremity with full sensation and strength in all dermatomes and myotomes. No midline cervical tenderness. Right lower extremity-shortened, externally rotated and abducted. Pain with logroll of the right lower extremity. Nontender throughout the right knee femoral shaft, tibial shaft and right foot/ankle. Brisk capillary refill. Sensation intact light touch L3-S1 dermatomes. DF, PF, EHL intact. DP, PT 2+. Pelvis is stable, nontender. Skin is intact without lacerations, abrasions. No ecchymosis noted. Assessment & Plan Assessment/Plan (1) Closed fracture of right hip: QUALIFIERS: Encounter type: initial encounter Qualified Code(s): S72.001A - Fracture of unspecified part of neck of right femur, initial encounter for closed fracture PLAN: Plan to proceed with right hip nailing. A1c is 13.6. I have sized the importance of tight glycemic control perioperatively to reduce risk of wound healing and bone healing complications. She expressed understanding. All questions were answered to the patient's satisfaction. Proceed with surgery today. Further recommendations pending surgery.
[2025-01-25] MEDS: Lactated Ringers 1,000 ML 15 ML IV (09:52)
--- NOTE | 2025-01-25 10:45 | RAD_ITS ---
PROCEDURE: HIP, UNI W/ PELVIS 2-3 VIEWS 01/25/2025 REASON FOR EXAM: GAMMA NAIL TECHNIQUE: HIP, UNI W/ PELVIS 2-3 VIEWS COMPARISON: 01/24/2025 FINDINGS: The patient is undergoing ORIF with short femoral nail, fixation screw, and femoral neck screw. Intact hardware. Anatomic alignment. No intraoperative complication noted. RAD/HIP, UNI W/ Pelvis 2-3 Views IMPRESSION: Unremarkable intraoperative appearance. Reading Location: [facility]
[2025-01-25] MEDS: Bupiv/Epi 0.25% 30 ML Vial (11:15)
--- NOTE | 2025-01-25 11:41 | PCM.POST.ANE ---
Anesthesia: Postop Eval I Current Vital Signs Temperature: 98.2 F Pulse Rate: 68 Blood Pressure: 91/59 Respiratory Rate: 16 Pulse Ox: 94 Oxygen Delivery Method: Room Air Assessment Airway patent: Yes Spontaneous unlabored respirations: Yes Mental status: Awake nausea: No Vomiting: No Anesthesia Complication: No Fluid Hydration Crystalloid volume administer (ml): 800 Total IV fluid infused: 800 Progress Note Anesthesia document: Postop Eval 1 completed: Yes
--- NOTE | 2025-01-25 11:43 | PCM.POSTANE2 ---
Anesthesia Postop Eval I Sum Postop Eval Completion status Anesthesia document: Postop Eval 1 completed: Yes Anesthesia Postop Eval I Summary Anesthesia Postop Eval I Summary: Anesthesia Postop Eval I: Assessment Summary Airway patent Yes 01/25/25 11:42 Spontaneous unlabored Yes 01/25/25 11:42 respirations Mental status Awake 01/25/25 11:42 nausea No 01/25/25 11:42 Vomiting No 01/25/25 11:42 Anesthesia Postop Eval I: Fluid Summary Crystalloid volume administer 800 01/25/25 11:42 (ml) Colloids volume administered ( ml) Blood Product volume administered (ml) Total IV fluid infused 800 01/25/25 11:42 Anesthesia Postop Eval I: Summary Notes Anesthesia Complication No 01/25/25 11:42 Anesthesia Complication Comment: Post-operative progress note Anesthesia: Postop Eval II Evaluation Mental status: Awake Pain Level: 0 nausea: No Vomiting: No
--- NOTE | 2025-01-25 11:51 | PCM.OPRPT ---
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: No Type of Anesthesia: Spinal RN Documented Start/Stop Times: Operation Date: 01/25/25 09:30 Case Time Into Pre-Op 01/25/25 09:47 Out of Pre-Op 01/25/25 10:30 Anesthesia Start 01/25/25 10:32 Into Room 01/25/25 10:32 Procedure Start 01/25/25 10:59 Procedure End 01/25/25 11:30 Anesthesia End 01/25/25 11:35 Out of Room 01/25/25 11:35 Into Recovery 01/25/25 11:36 Procedure Start Time: 10:59 Procedure Stop Time: 11:30 Select all DRAINS/GRAFTS/IMPLANTS that apply: Implanted device Implanted device details: Christina gamma 4 10 x 180 mm, lag screw 95 millimeter, interlocking screw 32.5 mm Estimated Blood Loss: 50 cc Specimen collected: No Description of surgery: Patient was seen in preoperative holding area. She was identified by name, medical record number, date of . The operative extremity was marked with a surgical marker. We confirmed informed consent with the patient and questions were answered to her satisfaction. Patient was brought to the operative suite. She was positioned in the laterally and a spinal anesthetic was administered by the anesthesiologist. Patient was then repositioned in supine and transferred to the fracture table. All bony prominences were well-padded. A perineal post was placed to secure the patient on the table. We then applied a ski boot which was well-padded to the operative extremity. The well leg was dropped into extension and secured to the axial post of the fracture table with a pillow and Coban. The right arm was brought across patient's chest with a blanket on her chest. We then performed a closed reduction maneuver with external rotation, traction, internal rotation and adduction. Fluoroscopic images were obtained. Fracture appeared to be acceptably reduced following closed reduction. We then prepped and draped the right lower extremity in normal, sterile orthopedic fashion. A timeout was performed with all parties in attendance in agreement with the side, site, and operation be performed. 2 g Ancef and 1 g IV TXA was administered prior to incision. No concerns were voiced and we elected to proceed. I first used fluoroscopy to johnson the level of the fracture and planned incision for insertion of the cephalomedullary nail device. In line with the long axis of the femur, 4 fingerbreadths proximal to the tip of the greater trochanter, a full-thickness skin incision was planned.. Skin was sharply incised with 10 blade scalpel, carried into the subcutaneous tissues. The IT band was encountered and split and planned trajectory of the nail placement. The greater trochanter was then able to be palpated digitally. I then placed a threaded guidewire just medial to the tip of the greater trochanter and in the anterior third of it on the lateral. Opening reamer was then placed over top of the guidewire after placement was confirmed on C arm. Reduction was again confirmed. We selected her nail to be 18 cm x 10 mm diameter. Nail was assembled on the back table. Nail was then placed to the pilot boat deckhand hole and impacted to appropriate depth. Rotation was confirmed on the lateral. Drill sleeve was placed through the targeting guide. We drilled the pin for the lag screw at an appropriate position and depth, tip to apex distance less than 25 mm on AP and lateral combined. Depth gauge was used to measure the length of the screw, 95 mm. Prior to drilling for the guidepin, I applied a lateral translation of the femoral neck with a bone hook placed to the lag screw incision. We then used the cannulated drill to drill to an appropriate depth. Drill was removed, drill pin left in place. Lag screw was placed over top of the drill pin and tightened to an appropriate depth. Compression was then added through the lag screw using the outrigger with excellent compression across fracture site after gross traction was removed. Setscrew was then tightened, and then turned back a quarter turn to allow the lag screw to slide. I then drilled for a static interlocking screw in the distal portion of the screw utilizing the outrigger. Skin was incised full-thickness down the level of the IT band which was also split in line with the skin incision. I drilled bicortically through the distal interlocking slot of the nail. I measured for a 32.5 mm interlocking screw which was placed by hand with excellent purchase. Instruments were removed as well as the outrigger for the nail. Final fluoroscopic images were obtained at the hip. Final fluoroscopic images were obtained. We irrigated the wounds copiously with normal saline solution. Hemostasis was excellent at this point. Field block was administered with 30 cc total 0.25% bupivacaine with epinephrine. We then closed the deeper layers, IT band with 0 Vicryl. Intradermal buried stitches of 2-0 Vicryl were utilized and skin finally reapproximated with skin edison. Sterile compression dressing of Xeroform, 4 x 4's, and Tegaderm was applied. Patient tolerated procedure well without complication. She was transferred back to her hospital bed and subsequently to PACU in stable condition. Intraoperative medications: 2 g Ancef IV Post Operative Plan: Weightbearing: Weightbearing as tolerated right lower extremity with a walker Antibiotics: Ancef x 3 doses postoperatively, 1 dose given preoperatively DVT Prophylaxis: 2.5 mg Eliquis twice daily x 28 days postoperatively for DVT prophylaxis beginning postoperative day 1 Rios: None Dressing: Dry sterile dressing changes daily and as needed for saturation X-Rays: 2 weeks postop in the office Follow-up: 2 weeks post-operatively with me in the office Surgical Findings: Displaced right intertrochanteric femur fracture, stable following fixation. Complications Complications: No Admit VTE Documentation VTE Present on Admission: No VTE Mechan Device Prophylaxis: SCD's and Knee High ROWDY Hose VTE Pharm Prophylaxis ordered?: Yes
[2025-01-25] MEDS: Cefazolin 1 GM/50 ML BAG IV ×2 (13:18→22:02)
[2025-01-25] MEDS: 0.9% Normal Saline (250mL Bag) 250 ML 15 ML IV (13:19)
[2025-01-25] MEDS: Ergocalciferol 1.25 MG (50, 000 UNIT) Capsule PO (14:49)
--- NOTE | 2025-01-25 15:13 | CASEMGMT ---
Social Work SW met with pt and introduced self and role of SW. Pt has completed surgery for hip fracture but has not yet had therapy. SW spoke with pt regarding the possibility of need rehab prior to returning home. Pt is realistic that this may be necessary and is requesting rehab at [facility]. A list of SNFproviders including quality and resource use data and consistent with the patient?s preferred geographic region, medical needs, and insurance network were provided from the [employer] Guide. SW requested that pt review list and make additional choices in the event [facility] TCU or [facility] are unable to accept. Pt agreeable. Referral sent to [facility] in TCU/[facility]. SW to follow up on Monday for discharge planning. Tank DAS
--- NOTE | 2025-01-25 20:05 | NURSING ---
Patient vagaled down when sitting on toilet. Dr. Nicholas notified.
[2025-01-25] MEDS: LACTATED RINGERS 500 ML 999 ML IV (21:25)
[2025-01-25] MEDS: 0.9% Saline Lock 10 ML Syringe IV (21:25)
[2025-01-25] MEDS: Dorzolamide HCL/Timolol 10 ml Bottle 1 DRP OPHTHALMIC (22:03)
[2025-01-25] MEDS: Insulin Glargine-YFGN 100 UNIT/ML Pen 15 UNIT SC (22:04)
[2025-01-25] MEDS: Senna/Docusate Sodium 1 Tablet 2 TABLET PO (22:05)
[2025-01-26] VITALS (8 sets, daily range): BP systolic 119–146; BP diastolic 48–69; PULSE 79–100; RESP 18; TEMP 36.6–37; O2SAT 93–100
[2025-01-26 06:12] LABS: Hematocrit 33.1 % (37-47); Hemoglobin 11.1 g/dL (12.0-15.0); Immature Granulocytes Count 0.060 X10^3/uL (0.0-0.0); Mean Corp Hgb Conc 33.5 g/dL (32-36); Mean Corpuscular Volume 87.8 fL (81-99); Mean Platelet Vol. 10.8 fl (6.2-12.0); NRBC Flagged by Analyzer 0 % (0-5); Platelet Count 228 K/mm3 (150-450); RBC Distribution Width CV 13.0 % (11.6-14.6); RBC Distribution Width SD 41.4 fl (35.1-43.9); Red Blood Count 3.77 M/mm3 (4.2-5.4); White Blood Count 12.1 K/mm3 (4.4-11.0)
[2025-01-26] MEDS: Cefazolin 1 GM/50 ML BAG IV (06:25)
[2025-01-26 06:34] LABS: Anion Gap 10 (5-15); BUN 13 mg/dL (4-19); BUN/Creat Ratio 23.1 RATIO (10-20); Calcium,Total 8.7 mg/dL (7.6-11.0); Carbon Dioxide 24.4 mmol/L (21.0-32.0); Chloride 99 mmol/L (98-108); Estimated Creatinine Clearance 45.98 ml/min (50-250); Glucose 229 mg/dL (70-99); Potassium 4.2 mmol/L (3.3-5.1)
--- NOTE | 2025-01-26 07:23 | PN.HOSP_ITS ---
Reason for Visit Reason for Visit: Diagnoses Fracture of unspecified part of neck of right femur, initial encounter for closed fracture (01/24/25) Subjective Subjective Feeling good. Pain greatly improved after surgery. 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 She said that she did not follow further up in regards to the management of this with because of [id number] and she did not have the resources further. I told her I was unfamiliar with the diagnosis and asked her if she was diagnosed with myositis, she said that was not the diagnosis but myoflassis. Objective Data Objective Data Vital Signs: Vital Signs Temp Pulse Resp BP Pulse Ox O2 Del Method O2 Flow Rate 36.7 C 79 18 121/48 H 98 Room Air 2 01/26/25 04:50 01/26/25 04:50 01/26/25 04:50 01/26/25 04:50 01/26/25 04:50 01/26/25 04:50 01/25/25 12:05 Oxygen Flow Rate (L/min) 2 Oxygen Delivery Method Room Air Weight: 69.1 kg Body Mass Index (BMI) 27.8 Intake & Output: Intake and Output for Last 24 Hours 01/24/25 01/25/25 01/26/25 23:59 23:59 23:59 Intake Total 1000 / 1250 800 / 800 Output Total 850 / 850 Balance 150 / 400 800 / 800 Lab / Micro Data 01/26/25 05:50 01/26/25 05:50 Labs: Laboratory Results - last 24 hr 01/25/25 06:21: POC Glucose 272 H 01/25/25 12:46: POC Glucose 254 H 01/25/25 19:01: POC Glucose 394 H 01/25/25 19:49: POC Glucose 385 H 01/26/25 05:50: WBC 12.1 H, RBC 3.77 L, Hgb 11.1 L, Hct 33.1 L, MCV 87.8, MCH 29.4, MCHC 33.5, RDW Std Deviation 41.4, RDW Coeff of Jasmin 13.0, Plt Count 228, MPV 10.8, Immature Gran % (Auto) 0.500, Neut % (Auto) 84.1 H, Lymph % (Auto) 7.3 L, [place] % (Auto) 7.7, Eos % (Auto) 0.2, Baso % (Auto) 0.2, Absolute Neuts (auto) 10.2 H, Absolute Lymphs (auto) 0.88, Nucleated RBC % 0, Sodium 133, Potassium 4.2, Chloride 99, Carbon Dioxide 24.4, Anion Gap 10, BUN 13, Creatinine 0.56 L, Estim Creat Clear Calc 45.98 L, Est GFR (MDRD) Non-Af 89, BUN/Creatinine Ratio 23.1 H, Glucose 229 H, Calcium 8.7 01/26/25 06:28: POC Glucose 195 H Physical Exam Const alert and no apparent distress HEENT head/scalp atraumatic and moist oral mucous membranes Resp normal respiratory effort, no retractions, no use of accessory muscles and clear to auscultation bilaterally Cardio regular rate, regular rhythm, S1 normal heart sound and S2 normal heart sound GI normal to inspection, nondistended, normoactive bowel sounds and soft to palpation Neuro Sensorium / Orientation: awake and alert Assessment & Plan Assessment/Plan (1) Closed fracture of right hip: QUALIFIERS: Encounter type: initial encounter Qualified Code(s): S72.001A - Fracture of unspecified part of neck of right femur, initial encounter for closed fracture PLAN: Status post mechanical fall. Bedrest for now. Pain control. 25-hydroxy vitamin D level 52.8. Continue ergocalciferol. Patient underwent a right proximal femur cephalomedullary nailing on the . Per orthopedics: Dry sterile dressing changes daily and as needed for saturation. Follow-up in the office in 2 weeks. Weightbearing as tolerated on the right with a walker. PLAN: Plan Diabetes mellitus type 2, uncontrolled: * A1c 13.6. * She has refused outpatient medications including insulin in the past because of side effects. She said the side effects of it have some ado of heart attack or stroke. I asked her specifically what her concerns were but she cannot informing what side effects she was actually worried about. I discussed with her the very importance of being on insulin given reported history of A1c that high. She said that she will comply with what we recommend while she is in the hospital but made no promise that she would continue that when she is discharged. I did try to reassure her that we would be checking her blood sugar when she was here. * Will increase glargine to 20 units twice daily. Hypertension: * elevated while here. Will start ACEi. PRN hydralazine VTE prophylaxis: Apixaban 2.5 mg twice daily for 28 days CODE STATUS: Addressed with the patient. Patient wishes to be DNR Comfort Care arrest. Explained the patient that she may change her mind at any point if she still wishes. Disposition: to SNF pending acceptance and insurance approval. Charges/Coding Visit Charges Inpatient E&M: 14962 Subs Hosp L2
[2025-01-26] MEDS: Senna/Docusate Sodium 1 Tablet 2 TABLET PO ×2 (11:05→22:13)
[2025-01-26] MEDS: Latanoprost 0.005% 1 Bottle 1 DRP OPHTHALMIC ×2 (11:05→22:13)
[2025-01-26] MEDS: Insulin Glargine-YFGN 100 UNIT/ML Pen 20 UNIT SC ×2 (11:06→22:26)
[2025-01-26] MEDS: APIXABAN 2.5 MG TABLET (WCH) PO ×2 (11:16→22:19)
--- NOTE | 2025-01-26 11:42 | PN.ORTHO_ITS ---
Subjective Subjective Patient seen and examined. Denies any new complaints. Bowel movement today. Denies any fevers, chills, nausea vomiting, chest pain shortness of breath. Pain controlled. Up with therapy and nursing multiple times today. Objective Data Objective Data Vital Signs: Vital Signs Temp Pulse Resp BP Pulse Ox O2 Del Method O2 Flow Rate 98 F 95 18 146/69 H 95 Room Air 2 01/26/25 08:53 01/26/25 08:53 01/26/25 08:53 01/26/25 08:53 01/26/25 08:53 01/26/25 08:53 01/25/25 12:05 Oxygen Flow Rate (L/min) 2 Oxygen Delivery Method Room Air Weight: 152 lb 5.431 oz Body Mass Index (BMI) 27.8 Intake & Output: Intake and Output for Last 24 Hours 01/24/25 01/25/25 01/26/25 23:59 23:59 23:59 Intake Total 1000 / 1250 850 / 850 Output Total 850 / 850 Balance 150 / 400 850 / 850 Lab / Micro Data 01/26/25 05:50 01/26/25 05:50 Labs: Laboratory Results - last 24 hr 01/25/25 12:46: POC Glucose 254 H 01/25/25 19:01: POC Glucose 394 H 01/25/25 19:49: POC Glucose 385 H 01/26/25 05:50: WBC 12.1 H, RBC 3.77 L, Hgb 11.1 L, Hct 33.1 L, MCV 87.8, MCH 29.4, MCHC 33.5, RDW Std Deviation 41.4, RDW Coeff of Jasmin 13.0, Plt Count 228, MPV 10.8, Immature Gran % (Auto) 0.500, Neut % (Auto) 84.1 H, Lymph % (Auto) 7.3 L, [place] % (Auto) 7.7, Eos % (Auto) 0.2, Baso % (Auto) 0.2, Absolute Neuts (auto) 10.2 H, Absolute Lymphs (auto) 0.88, Nucleated RBC % 0, Sodium 133, Potassium 4.2, Chloride 99, Carbon Dioxide 24.4, Anion Gap 10, BUN 13, Creatinine 0.56 L, Estim Creat Clear Calc 45.98 L, Est GFR (MDRD) Non-Af 89, BUN/Creatinine Ratio 23.1 H, Glucose 229 H, Calcium 8.7 01/26/25 06:28: POC Glucose 195 H Physical Exam Narrative General - A&Ox3, NAD. VSS/AF Right lower extremity -incisional dressing C/D/I. SILT Sural, Saphenous, SPN, DPN, Tibial N. distributions. DP, PT 2+. BCR. DF, PF, EHL 5/5. No calf TTP. Assessment & Plan Assessment/Plan (1) Closed fracture of right hip: QUALIFIERS: Encounter type: initial encounter Qualified Code(s): S72.001A - Fracture of unspecified part of neck of right femur, initial encounter for closed fracture PLAN: POD# 1 s/p right femur CMN -Patient doing well. Hemoglobin 11.1 today down from 12.8 prior to surgery. Likely multimodal with acute blood loss from surgery, dilution. Recheck H&H tomorrow. Continue anticoagulant. -I discussed her diabetes management and the importance of lowering her A1c to avoid perioperative complications as well as long-term health repercussions. She expresses concern of prior diabetic medications side effects but seems to be open to insulin therapy while she is admitted. I reviewed the long-term and short-term risks of poorly controlled diabetes. - Pain control - Medicine following for medical management - PT/[id number] as tolerated right lower extremity - DVT PPX -multimodal with SCDs, ROWDY moraes, early mobilization and Eliquis. Plan for 28 days Eliquis therapy postoperatively. - Case management - D/C planning I will sign off at this time. Please not hesitate to call if any questions or concerns arise. Discharge instructions: Maintain surgical dressings and okay for dry sterile dressing changes as needed for saturation. Okay to leave open to air after postoperative day #5. Okay to shower at that time with no drainage. Weightbearing as tolerated right lower extremity. PT/OT upon discharge. Follow-up at [facility] in 2 weeks for staple removal and x-rays. Continue Eliquis per on discharge.
[2025-01-26] MEDS: Dorzolamide HCL/Timolol 10 ml Bottle 1 DRP OPHTHALMIC (22:13)
[2025-01-27 03:41] VITALS: BP 132/56; PULSE 88; RESP 18; TEMP 37.7; O2SAT 98
--- NOTE | 2025-01-27 07:58 | PN.HOSP_ITS ---
Reason for Visit Chief Complaint: Fall and right hip pain Subjective Subjective Feeling well. Objective Data Objective Data Vital Signs: Vital Signs Temp Pulse Resp BP Pulse Ox O2 Del Method O2 Flow Rate 37.7 C H 88 18 132/56 H 98 Room Air 2 01/27/25 03:41 01/27/25 03:41 01/27/25 03:41 01/27/25 03:41 01/27/25 03:41 01/27/25 03:41 01/25/25 12:05 Oxygen Flow Rate (L/min) 2 Oxygen Delivery Method Room Air Weight: 69.1 kg Body Mass Index (BMI) 27.8 Intake & Output: Intake and Output for Last 24 Hours 01/25/25 01/26/25 01/27/25 23:59 23:59 23:59 Intake Total 1000 / 1250 2041.5 / 2041.5 250 / 250 Output Total 850 / 850 Balance 150 / 400 2041.5 / 2041.5 250 / 250 Lab / Micro Data 01/26/25 05:50 01/26/25 05:50 Labs: Laboratory Results - last 24 hr 01/26/25 11:53: POC Glucose 365 H 01/26/25 16:38: POC Glucose 291 H 01/26/25 22:24: POC Glucose 286 H 01/27/25 06:46: POC Glucose 162 H Radiography Diagnostic Testing: Radiology Impression Hip/Pelvis X-Ray 01/25/25 10:45 IMPRESSION: Unremarkable intraoperative appearance. Reading Location: [place] [id number] Physical Exam Const alert and no apparent distress HEENT head/scalp atraumatic and moist oral mucous membranes Resp normal respiratory effort and no retractions Neuro Sensorium / Orientation: awake and alert Assessment & Plan Assessment/Plan (1) Closed fracture of right hip: QUALIFIERS: Encounter type: initial encounter Qualified Code(s): S72.001A - Fracture of unspecified part of neck of right femur, initial encounter for closed fracture PLAN: Status post mechanical fall. Bedrest for now. Pain control. 25-hydroxy vitamin D level 52.8. Continue ergocalciferol. Patient underwent a right proximal femur cephalomedullary nailing on the . Per orthopedics: Dry sterile dressing changes daily and as needed for saturation. Follow-up in the office in 2 weeks. Weightbearing as tolerated on the right with a walker. PLAN: Plan Diabetes mellitus type 2, uncontrolled: * A1c 13.6. * She has refused outpatient medications including insulin in the past because of side effects. She said the side effects of it have some ado of heart attack or stroke. I asked her specifically what her concerns were but she cannot informing what side effects she was actually worried about. I discussed with her the very importance of being on insulin given reported history of A1c that high. She said that she will comply with what we recommend while she is in the hospital but made no promise that she would continue that when she is discharged. I did try to reassure her that we would be checking her blood sugar when she was here. * Will increase glargine to 25 units twice daily. Hypertension: * elevated while here. Will start ACEi. PRN hydralazine VTE prophylaxis: Apixaban 2.5 mg twice daily for 28 days CODE STATUS: Addressed with the patient. Patient wishes to be DNR Comfort Care arrest. Explained the patient that she may change her mind at any point if she still wishes. Disposition: To rehab unit today.
[2025-01-27 08:04] VITALS: O2SAT 94
[2025-01-27 08:33] VITALS: BP 118/61; PULSE 96; RESP 16; TEMP 36.7; O2SAT 96
--- NOTE | 2025-01-27 10:06 | CASEMGMT ---
Social Work- [facility] accepted referral. Pt updated. Physician updated. SW remains available to follow. PIPPA [place]
[2025-01-27] MEDS: Insulin Glargine-YFGN 100 UNIT/ML Pen 20 UNIT SC (10:24)
[2025-01-27] MEDS: Senna/Docusate Sodium 1 Tablet 2 TABLET PO (10:26)
[2025-01-27] MEDS: Latanoprost 0.005% 1 Bottle 1 DRP OPHTHALMIC (10:27)
[2025-01-27] MEDS: APIXABAN 2.5 MG TABLET (WCH) PO (10:30)
--- NOTE | 2025-01-27 10:49 | DS.PCM_ITS ---
Providers Date of Admission: 01/24/25 Primary Care Physician: Dr. Yvonne Nesbitt, DO Consultations 01/24/25 18:37 Consult: Orthopedics Routine Consulting Provider: Apolinar Swift Reason for Consult: hip fracture EMERGENT Consult: No MD Notified: Yes Date Notified: 01/24/25 Time Notified: 14:53 Method of Notification: ED Physician Initiated Reason For Visit: RIGHT HIP FRACTURE Diagnosis Discharge Diagnosis (1) Closed fracture of right hip: Status: Acute Code(s): S72.001A - Fracture of unspecified part of neck of right femur, initial encounter for closed fracture Qualifiers: Encounter type: initial encounter Qualified Code(s): S72.001A - Fracture of unspecified part of neck of right femur, initial encounter for closed fracture Plan: Status post mechanical fall. Bedrest for now. Pain control. 25-hydroxy vitamin D level 52.8. Continue ergocalciferol. Patient underwent a right proximal femur cephalomedullary nailing on the . Per orthopedics: Dry sterile dressing changes daily and as needed for saturation. Follow-up in the office in 2 weeks. Weightbearing as tolerated on the right with a walker. Plan Diabetes mellitus type 2, uncontrolled: * A1c 13.6. * She has refused outpatient medications including insulin in the past because of side effects. She said the side effects of it have some ado of heart attack or stroke. I asked her specifically what her concerns were but she cannot informing what side effects she was actually worried about. I discussed with her the very importance of being on insulin given reported history of A1c that high. She said that she will comply with what we recommend while she is in the hospital but made no promise that she would continue that when she is discharged. I did try to reassure her that we would be checking her blood sugar when she was here. * Will increase glargine to 25 units twice daily. Hypertension: * elevated while here. Will start ACEi. PRN hydralazine VTE prophylaxis: Apixaban 2.5 mg twice daily for 28 days CODE STATUS: Addressed with the patient. Patient wishes to be DNR Comfort Care arrest. Explained the patient that she may change her mind at any point if she still wishes. Disposition: To rehab unit today. Medications at Discharge Home Medications dorzolamide 22.3 mg-timolol 6.8 mg/mL eye drops 1 drp ophthalmic (eye) QHS eye 01/24/25 latanoprost 0.005 % eye drops 1 drp ophthalmic (eye) BID eye heal 01/24/25 acetaminophen 325 mg tablet 650 mg (2 x 325 mg) PO Q6H PRN PRN Pain 1-10 Or Fever >100.7 #0 tabs 01/27/25 apixaban 5 mg tablet (Eliquis) 2.5 mg (1/2 x 5 mg) PO BID #0 tabs 01/27/25 calcium carbonate 500 mg (2.5 x 200 mg calcium (500 mg)) PO TIDCM #30 tabs 01/27/25 ergocalciferol (vitamin D2) 1,250 mcg (50,000 unit) capsule (Vitamin D2) 1,250 mcg PO Q7D #0 caps 01/27/25 glucagon 1 mg solution for injection (Glucagon Emergency Kit) 1 mg IM X1 PRN Hypoglycemia #0 ea 01/27/25 insulin glargine-yfgn 100 unit/mL (3 mL) subcutaneous pen 25 unit (0.25 mL) subcut BID #0 mL 01/27/25 insulin lispro 100 unit/mL subcutaneous pen (Humalog KwikPen (U-100) Insulin) See Protocol subcut ACHS #0 mL 01/27/25 lisinopril 20 mg tablet 20 mg PO DAILY #0 tabs 01/27/25 oxycodone 5 mg tablet 5 mg PO Q4H PRN PRN Pain Score 4-10 #0 tabs 01/27/25 sennosides 8.6 mg-docusate sodium 50 mg tablet (Stimulant Laxative Plus) 2 tab PO BID #0 tabs 01/27/25 Hospital Course Operations - (Right proximal femur cephalomedullary nailing) Summary of Care Provided Minutes Spent on Discharge: 32 Hospital Course: Patient presented with a mechanical fall and had a right hip fracture. Patient underwent a right proximal femur cephalomedullary nailing on the . Patient's hospitalization was uncomplicated though in the door, patient was hyperglycemic. Patient has known type 2 diabetes that is not treated per patient preference. Had long discussion with the patient about treating her diabetes. She said that she is worried about the side effects but could not specify what the side effects were. Stated that her diabetes are in the Lord's hands. Patient though did agree to being treated while she is in the hospital and in rehab but made no promises that she would continue it when she is discharged. So did emphasize importance of proper diabetes control to help with healing overall. Weight / BMI Weight Weight: 69.1 kg Body Mass Index (BMI) 27.8 ABG / Lab / Microbiology Data 01/26/25 05:50 01/26/25 05:50 Laboratory: Laboratory Results - last 24 hr 01/26/25 11:53: POC Glucose 365 H 01/26/25 16:38: POC Glucose 291 H 01/26/25 22:24: POC Glucose 286 H 01/27/25 06:46: POC Glucose 162 H Radiography Diagnostic Testing: Radiology Impression Hip/Pelvis X-Ray 01/25/25 10:45 IMPRESSION: Unremarkable intraoperative appearance. Reading Location: [place] [id number] D/ Instructions Weight Bearing Status: Weight bearing as tolerated Keep extremity elevated above heart level: Right Leg Call your doctor if your incision/area has: Continuous Slow Oozing, Sudden Increased Bleeding, Increased Pain/ Swelling, Increased Redness, Foul Smelling Discharge and Swelling at the incision site DC O2, CPAP, BIPAP Needs Home O2 Discharge instructions: No Meaningful Use Info Meaningful Use Meaningful Use Diagnoses (Choose all that apply): None applicable Discharge Plan Admission Admit Date/Time: 01/24/25 14:50 Primary Reason for Your Visit: Right hip fracture Attending Provider: Celio Mendenhall Primary Care Provider: Yvonne Nesbitt Consulting Providers: Apolinar Swift Discharge Orders/Prescriptions Prescriptions: New acetaminophen 325 mg Tablet 650 mg PO Q6H PRN PRN (Reason: Pain 1-10 Or Fever >100.7) Qty: 0 0RF calcium carbonate 200 mg calcium (500 mg) Tablet,Chewable 500 mg PO TIDCM Qty: 30 0RF ergocalciferol (vitamin D2) [Vitamin D2] 1,250 mcg (50,000 unit) Capsule 1,250 mcg PO Q7D Qty: 0 0RF Glucagon Emergency Kit (human) 1 mg Recon Soln 1 mg IM X1 PRN (Reason: Hypoglycemia) Qty: 0 0RF Eliquis 5 mg Tablet 2.5 mg PO BID Qty: 0 0RF insulin lispro [Humalog KwikPen Insulin] 100 unit/mL Insulin Pen See Protocol subcut ACHS Qty: 0 0RF Protocol: 2. Sliding Scale Insulin Low-Med Dosing Condition: 150-209 mg/dl = 1 unit Condition: 210-269 mg/dl = 2 units Condition: 270-329 mg/dl = 3 units Condition: 330-389 mg/dl = 4 units Condition: 390-449 mg/dl = 5 units Condition: Greater than 449 call physician Protocol Text: Suggested for: - Patients on Total Daily Insulin Dose of 28-36 units - Average body habitus patients LOW MEDIUM DOSING ALGORITHM insulin glargine-yfgn 100 unit/mL (3 mL) Insulin Pen 25 unit subcut BID Qty: 0 0RF lisinopril 20 mg Tablet 20 mg PO DAILY Qty: 0 0RF sennosides-docusate sodium [Stimulant Laxative Plus] 8.6-50 mg Tablet 2 tab PO BID Qty: 0 0RF oxycodone 5 mg Tablet 5 mg PO Q4H PRN PRN (Reason: Pain Score 4-10) Qty: 0 0RF Continued latanoprost 0.005 % drops 1 drp ophthalmic (eye) BID dorzolamide-timolol 22.3-6.8 mg/mL drops 1 drp ophthalmic (eye) QHS Referrals / Follow Up: Yvonne Nesbitt DO [Primary Care Provider] - Within 2 Weeks Apolinar Swift DO [Med Staff - Active Staff] - Within 2 Weeks Disposition Disposition (needs filled in before D/C Order can be placed): Inpatient Rehab Unit/Facility Charges/Coding Visit Charges Inpatient E&M: 30559 Disch Hosp >30min
--- NOTE | 2025-01-27 12:27 | CASEMGMT ---
Social Work- Physician feels that pt is medically ready for discharge. Pt and bedside nurse notified. SW called pt nephew and left a non-descript voicemail. [facility] admissions notified of pt pending d/c. Pt reports no additional needs at this time. Plan: [facility] Rehab Unit [facility] [place]
--- NOTE | 2025-01-27 15:01 | CHAPLAIN ---
Type of Pastoral Visit _x__ Initial Visit ___ Follow-up Visit ___ On-call Visit ___ General Patient Visit ___ Spiritual Assessment ___ Family Conference ___ Bereavement ___ Rapid Response ___ Code Blue ___ Other (describe below) Pastoral Care Referral From _x__ Patient ___ Family ___ Nurse ___ Physician ___ Behavioral Health Tech ___ Plaster Pattern Caster ___ Other (describe below) Sacrament/Intervention _x__ Active listening ___ Anointing ___ Temple ___ Bereavement ___ Communion _x__ Trinity exploration ___ _x__ Life review _x__ Prayer ___ Reconciliation ___ Sacrament of Sick _x__ Supportive presence ___ Wedding ___ Other (describe below) Pastoral Comments patient is 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
== END 2025-01-27 14:15 | DRG 482 ==
LOC: ED 15:38 → MS3 18:00
PROVIDERS: Anesthesiology; Physician Assistant; Student in an Organized Health Care Education/Training Program; Emergency Provider Emergency Medicine; PCP Internal Medicine
PROC: 0QS636Z Reposition Right Upper Femur with Intramedullary Internal Fixation Device, Percutaneous Approach (ICD-10-PCS; CPT 27245; principal; 2025-01-25 09:00)
DX: S72.144A Nondisplaced intertrochanteric fracture of right femur, initial encounter for closed fracture (principal); I16.0 Hypertensive urgency; Z66 Do not resuscitate; E11.65 Type 2 diabetes mellitus with hyperglycemia; I10 Essential (primary) hypertension; Z79.4 Long term (current) use of insulin; W01.0XXA Fall on same level from slipping, tripping and stumbling without subsequent striking against object, initial encounter; M25.561 Pain in right knee; T38.3X6A Underdosing of insulin and oral hypoglycemic [antidiabetic] drugs, initial encounter; Z91.148 Patient's other noncompliance with medication regimen for other reason; X50.1XXA Overexertion from prolonged static or awkward postures, initial encounter; Y93.H2 Activity, gardening and landscaping; G89.29 Other chronic pain; Z79.01 Long term (current) use of anticoagulants; Z79.899 Other long term (current) drug therapy
CPT/HCPCS: 36415; 72170; 73502; 73552; 76000; 80048; 80053; 82306; 82962; 83036; 85025; 85610; 86850; 86900; 86901; 93005; 97116; 97162; 97166; 97530; 97535; 99285; C1713; C1776; A4216; J2405

== ENCOUNTER 2025-01-27 14:24 | Inpatient (IN) | payer MEDICARE, OTHER, SELFPAY ==
[2025-01-27 14:47] VITALS: BP 148/65; PULSE 106; RESP 16; TEMP 36.7; O2SAT 98
[2025-01-27 14:48] VITALS: BMI 27.8
[2025-01-27 14:58] VITALS: PULSE 106; RESP 16; O2SAT 98
[2025-01-27 15:00] VITALS: BMI 27.8
[2025-01-27 16:52] VITALS: BP 159/72; PULSE 95; RESP 16; TEMP 36.7; O2SAT 100
[2025-01-27 22:00] VITALS: PULSE 95; RESP 17; O2SAT 100
[2025-01-27] MEDS: Insulin Glargine-YFGN 100 UNIT/ML Pen 25 UNIT SC (22:05)
[2025-01-27] MEDS: APIXABAN 2.5 MG TABLET (WCH) PO (22:06)
[2025-01-27] MEDS: 0.9% Saline Lock 10 ML Syringe IV (23:03)
[2025-01-27] MEDS: Dorzolamide HCL/Timolol 10 ml Bottle 1 DRP EACH EYE (23:03)
[2025-01-27] MEDS: Latanoprost 0.005% 1 Bottle 1 DRP OPHTHALMIC (23:06)
[2025-01-28 05:54] LABS: Hematocrit 31.9 % (37-47); Hemoglobin 10.6 g/dL (12.0-15.0); Immature Granulocytes Count 0.060 X10^3/uL (0.0-0.0); Mean Corp Hgb Conc 33.2 g/dL (32-36); Mean Corpuscular Volume 88.9 fL (81-99); Mean Platelet Vol. 10.5 fl (6.2-12.0); NRBC Flagged by Analyzer 0 % (0-5); Platelet Count 261 K/mm3 (150-450); RBC Distribution Width CV 13.0 % (11.6-14.6); RBC Distribution Width SD 42.3 fl (35.1-43.9); Red Blood Count 3.59 M/mm3 (4.2-5.4); White Blood Count 8.2 K/mm3 (4.4-11.0)
[2025-01-28 06:00] VITALS: BP 140/76; PULSE 91; RESP 16; TEMP 36.6; O2SAT 95
[2025-01-28 06:29] LABS: AST(SGOT) 23 U/L (<=31); Alanine Aminotransfer ALT/SGPT 16 U/L (<=34); Albumin, Serum 3.2 g/dL (3.4-4.8); Alkaline Phosphatase 70 U/L (35-104); Anion Gap 11 (5-15); BUN 16 mg/dL (4-19); BUN/Creat Ratio 26.9 RATIO (10-20); Calcium,Total 9.1 mg/dL (7.6-11.0); Carbon Dioxide 26.1 mmol/L (21.0-32.0); Chloride 103 mmol/L (98-108); Estimated Creatinine Clearance 45.98 ml/min (50-250); Globulin 3.0 g/dL (2.2-4.2); Glucose 98 mg/dL (70-99); Magnesium 2.0 mg/dL (1.5-2.2); Potassium 4.3 mmol/L (3.3-5.1)
[2025-01-28] MEDS: Dorzolamide HCL/Timolol 10 ml Bottle 1 DRP EACH EYE ×2 (08:49→22:02)
[2025-01-28] MEDS: Insulin Glargine-YFGN 100 UNIT/ML Pen 25 UNIT SC (08:49)
[2025-01-28] MEDS: APIXABAN 2.5 MG TABLET (WCH) PO ×2 (08:49→22:03)
[2025-01-28] MEDS: Senna/Docusate Sodium 1 Tablet 2 TABLET PO ×2 (08:51→22:03)
[2025-01-28 08:57] VITALS: PULSE 97; RESP 16; O2SAT 99
[2025-01-28] MEDS: 0.9% Saline Lock 10 ML Syringe IV (09:04)
--- NOTE | 2025-01-28 10:44 | PCM.HP.STD ---
HPI - General General Date of Admission: 01/27/25 Date of Service: 01/28/25 Chief Complaint: Debility due to hip fx/ORIF HPI Narrative [place], is a 84 YO F with a PMH of poorly controlled DM II, glaucoma, diabetic retinopathy, HTN, Vitamin D deficiency and hyperlipidemia. She refuses medications for diabetes, HTn and HLD. She prefers to use herbal medications. She presented to the emergency department at [facility] on 01/24/2025 after a ground-level fall in her yard. X-ray in the emergency room showed a nondisplaced oblique fracture of the intertrochanteric region of the proximal right femur with cephalic migration of the distal fracture fragment. Dr. Swift was consulted. She was taken to the OR on 01/25/2025 and had right proximal femur cephalomedullary nailing. Post operatively the HGB dropped from 12.9-11.1. She was agreeable to taking insulin/medication while in the hospital but, would not promise to continue post DC. she was transferred to the acute inpt rehab unit at [facility] on 01/27/25 for 3 hours of therapy daily to restore function/independence at or near her level prior to the hip fx. All lab drawn this morning was personally reviewed. White blood cell count is normal at 8.2. Hemoglobin is 10.6, down from 12.9 at presentation to the emergency department. She has normochromic normocytic indices and a normal RDW. Platelets are within normal limits. Sodium is 140 and the potassium is 4.3. The BUN is 16 with a creatinine of 0.61 which is stable. GFR is 87 and the estimated creatinine clearance is 45.98. Calcium, phosphorus and magnesium are all normal. LFTs are normal. Hemoccult stool was positive. Afebrile Blood pressure since arrival in rehab is ranged from 140/76 to 159/72. Heart rate has ranged from 91-106. She is maintaining appropriate oxygen saturation on room air. Good appetite/good fluid intake The blood sugar record was reviewed. She is currently taking glargine 25 units twice daily and she is on a sliding insulin scale. DVT prophylaxis with apixaban 2.5 mg twice daily. She is taking Tylenol as needed and oxycodone 5 mg as needed for pain. She has taken 1 dose of the Tylenol and that it was at bedtime last night. She has had 1 dose of OxyCodone 5 mg and that was this morning at 8:20 AM. [facility] Medical History (Updated 01/28/25 @ 15:[address] Haley Marcos, DO) Left ventricular hypertrophy Hyperlipidemia Vitamin D deficiency HTN (hypertension) Diabetic retinopathy Uncontrolled type 2 diabetes mellitus Glaucoma Home Medications ?Medication ?Instructions ?Recorded ?Last Taken ?Type dorzolamide 22.3 mg-timolol 6.8 1 drp ophthalmic (eye) QHS eye 01/24/25 01/26/25 History mg/mL eye drops latanoprost 0.005 % eye drops 1 drp ophthalmic (eye) BID eye heal 01/24/25 01/27/25 History acetaminophen 325 mg tablet 650 mg (2 x 325 mg) PO Q6H PRN PRN 01/27/25 01/26/25 Rx Pain 1-10 Or Fever >100.7 #0 tabs apixaban 5 mg tablet (Eliquis) 2.5 mg (1/2 x 5 mg) PO BID 01/27/25 01/27/25 Rx prophylaxis #0 tabs calcium carbonate 500 mg (2.5 x 200 mg calcium (500 01/27/25 01/27/25 12:15 Rx mg)) PO TIDCM stomach #30 tabs ergocalciferol (vitamin D2) 1,250 1,250 mcg PO Q7D supplement #0 caps 01/27/25 01/25/25 Rx mcg (50,000 unit) capsule (Vitamin D2) glucagon 1 mg solution for 1 mg IM X1 PRN Hypoglycemia #0 ea 01/27/25 Unknown Rx injection (Glucagon Emergency Kit) insulin glargine-yfgn 100 unit/mL 25 unit (0.25 mL) subcut BID 01/27/25 01/27/25 10:30 Rx (3 mL) subcutaneous pen diabetes #0 mL insulin lispro 100 unit/mL See Protocol subcut ACHS diabetes 01/27/25 01/27/25 12:15 Rx subcutaneous pen (Humalog KwikPen #0 mL (U-100) Insulin) lisinopril 20 mg tablet 20 mg PO DAILY blood pressure #0 01/27/25 01/27/25 Rx tabs oxycodone 5 mg tablet 5 mg PO Q4H PRN PRN Pain Score 01/27/25 Unknown Rx 4-10 #0 tabs sennosides 8.6 mg-docusate sodium 2 tab PO BID constipation #0 tabs 01/27/25 01/27/25 Rx 50 mg tablet (Stimulant Laxative Plus) Allergy/AdvReac Type Severity Reaction Status Date / Time No Known Allergies Allergy Verified 01/27/23 12:10 Family History Father Heart disease Surgical History (Updated 01/28/25 @ 15:[address] Haley Marcos DO) History of open reduction and internal fixation (ORIF) procedure Social History (Updated 01/28/25 @ 15:[address] Haley Marcos DO) household members: none and other details: She has never been but, has 3 step children housing: house do you think of yourself as: straight/heterosexual current gender identity: female Smoking Status: Never smoker alcohol intake: never substance use type: does not use what type of physical activity do you participate in: walking ROS Review of Systems ROS Unobtainable: Denies due to encephalopathy, due to endotracheal tube, due to mental condition or due to mental status Constitutional Constitutional: Denies anorexia, change in weight, chills, fatigue, fever(s), night sweats or weakness Eyes Eyes: Reports blurry vision and loss of central vision; Denies change in vision, diplopia, discharge from eye(s), double vision, eye pain, loss of vision or nystagmus ENT HEENT: Denies abnormal hearing, dysphagia, headache(s), hearing loss, nasal congestion or sore throat Cardiovascular Cardiovascular: Denies chest pain, dyspnea on exertion, edema, lightheadedness, orthopnea, orthostatic symptoms, palpitations, paroxysmal nocturnal dyspnea, racing heartbeat or syncope Respiratory/Chest Respiratory/Chest: Denies cough, dyspnea, shortness of breath at rest, shortness of breath with exertion or wheezing Gastrointestinal Gastrointestinal: Denies abdominal pain, constipation, diarrhea, dyspepsia, hematemesis, hematochezia, nausea or vomiting Genitourinary Genitourinary: Denies dysuria, hematuria, nocturia, urinary frequency, urinary hesitancy, urinary incontinence or urinary urgency Musculoskeletal Musculoskeletal: Reports joint pain, numbness, stiffness and other; Denies back pain, joint swelling or neck pain Integumentary Integumentary: Denies jaundice, pruritus or rash Neurologic Neurologic: Reports loss of vision, paresthesias and other Details: tells me that she has neuropathy in her feet and it sometimes causes problems with balance. She does not use a AD most of the time but, she has a cane at home. ; Denies abnormal speech, behavior changes, confusion, disequilibrium, dizziness, focal weakness, headache(s), memory loss, seizures, tremor(s) or vertigo Psychiatric Psychiatric: Denies abnormal sleep pattern, anhedonia, anxiety, behavioral changes, change in appetite, depression, homicidal ideation or suicidal ideation Endocrine Endocrinology: Reports polyuria; Denies change in body appearance or polydipsia Hematologic/Lymphatic Hematologic/Lymphatic: Denies easy bleeding, easy bruising or lymphadenopathy Allergic/Immunologic Allergic/Immunologic: Denies rhinitis, eczemia or asthma Vital Signs Vital Signs Vital Signs: 01/27/25 14:47 01/27/25 14:58 01/27/25 16:52 Temperature 98.1 F 98.1 F Temperature Source Oral Oral Pulse Rate 106 H 106 H 95 Pulse Strength Respiratory Rate 16 16 16 Respiratory Effort Normal Non-Labored Respiratory Depth Normal Respiratory Pattern Normal Blood Pressure 148/65 H 159/72 H Blood Pressure Mean 92 101 Blood Pressure Source Monitor Monitor Blood Pressure Position Semi-Fowlers Semi-Fowlers Blood Pressure Location Left Arm Left Arm Pulse Ox 98 98 100 Oxygen Delivery Method Room Air Room Air Room Air 01/27/25 22:00 01/27/25 22:00 01/28/25 06:00 Temperature 97.8 F Temperature Source Temporal Pulse Rate 95 91 Pulse Strength Normal (2+) Respiratory Rate 17 16 Respiratory Effort Normal Non-Labored Respiratory Depth Normal Respiratory Pattern Normal Blood Pressure 140/76 H Blood Pressure Mean 97 Blood Pressure Source Monitor Blood Pressure Position Semi-Fowlers Blood Pressure Location Left Arm Pulse Ox 100 95 Oxygen Delivery Method Room Air Room Air 01/28/25 08:57 Temperature Temperature Source Pulse Rate 97 Pulse Strength Respiratory Rate 16 Respiratory Effort Normal Non-Labored Respiratory Depth Normal Respiratory Pattern Normal Blood Pressure Blood Pressure Mean Blood Pressure Source Blood Pressure Position Blood Pressure Location Pulse Ox 99 Oxygen Delivery Method Room Air Weight Weight: 152 lb 5.431 oz Body Mass Index (BMI) 27.8 Physical Exam Const alert, oriented x3 and no apparent distress Constitutional Narrative: sitting in the recliner at the bedside and appears comfortable. Wearing a wig. General Appearance: cooperative HEENT HEENT Narrative: Dry mucous membranes. No thrush. Denies mouth pain. Tongue protrudes on the midline. May missing teeth and many broken, carious teeth. Head and Scalp: normal to inspection, normocephalic and atraumatic Eyes EOMs intact bilaterally, conjunctivae normal and no scleral icterus Eyes Narrative: No discharge from the eyes. Neck no lymphadenopathy, supple, No nodes and no carotid bruits Neck Narrative: Brisk carotid upstroke with good pulse volume bilaterally. General: trachea midline Chest Chest: symmetrical chest wall rise Resp normal respiratory effort, normal air movement, no use of accessory muscles and clear to auscultation bilaterally Effort and Inspection: able to speak in complete sentences Cardio regular rate, regular rhythm, S1 normal heart sound, S2 normal heart sound, no murmurs, no rub and no gallops Cardio Narrative: The rhythm is regular but, she is having a lot of ectopy. EKG at presentation to the ED showed NSR with PAC's. She denies any hx of AF. Jugular Venous Distention: Negative for JVD GI normal to inspection, nondistended, normoactive bowel sounds, soft to palpation and non-tender GI Narrative: No guarding with palpation no CVA tenderness Back/Spine no thoracic nor lumbar tenderness Cervical Spine: normal cervical lordosis Extremity no calf tenderness and no pedal edema Extremity Narrative: No clubbing and no cyanosis. Skin no jaundice Rashes: no rashes Neuro oriented x3, CN's II-XII intact bilaterally, moves all extremities and no focal motor deficits Neuro Narrative: She has numbness in both distal lower extremities but denies pain. Psych mental status grossly normal, thought process normal, cooperative, affect normal, speech normal, activity/motor behavior normal, denies hallucinations and denies suicidal ideation Appearance: grossly normal, appropriate and well kempt Attitude: calm, engaged and No agitated Activity / Motor Behavior: appropriate eye contact Results Lab / Micro Data 01/28/25 05:33 01/28/25 05:33 Labs: Laboratory Results - last 24 hr 01/27/25 16:12: POC Glucose 325 H 01/27/25 22:01: POC Glucose 236 H 01/28/25 05:33: WBC 8.2, RBC 3.59 L, Hgb 10.6 L, Hct 31.9 L, MCV 88.9, MCH 29.5, MCHC 33.2, RDW Std Deviation 42.3, RDW Coeff of Jasmin 13.0, Plt Count 261, MPV 10.5, Immature Gran % (Auto) 0.700, Neut % (Auto) 77.1 H, Lymph % (Auto) 12.0 L, [place] % (Auto) 8.6, Eos % (Auto) 1.2, Baso % (Auto) 0.4, Absolute Neuts (auto) 6.3, Absolute Lymphs (auto) 0.98, Nucleated RBC % 0, Sodium 140, Potassium 4.3, Chloride 103, Carbon Dioxide 26.1, Anion Gap 11, BUN 16, Creatinine 0.61 L, Estim Creat Clear Calc 45.98 L, Est GFR (MDRD) Non-Af 87, BUN/Creatinine Ratio 26.9 H, Glucose 98, Calcium 9.1, Phosphorus 3.6, Magnesium 2.0, Total Bilirubin 0.68, AST 23, ALT 16, Alkaline Phosphatase 70, Total Protein 6.3, Albumin 3.2 L, Globulin 3.0, Albumin/Globulin Ratio 1.1 01/28/25 06:13: POC Glucose 108 H Micro: Microbiology 01/27/25 21:30 Stool Stool Occult Blood ([place]) - Final Occult Blood Positive Assessment & Plan Assessment/Plan (1) Physical debility: (2) Fall: QUALIFIERS: Encounter type: subsequent encounter Qualified Code(s): W19.XXXD - Unspecified fall, subsequent encounter PLAN: Ground level fall. Was using a self propelled push mower and lost her balance and fell on the R hip. Denies dizziness and LOC. (3) Closed fracture of right hip: QUALIFIERS: Encounter type: initial encounter Qualified Code(s): S72.001A - Fracture of unspecified part of neck of right femur, initial encounter for closed fracture PLAN: Intertrochanteric (4) History of open reduction and internal fixation (ORIF) procedure: PLAN: 01/25/25 - Dr. Swift. Cephalomedullary nailing. (5) Acute blood loss as cause of postoperative anemia: (6) Heme positive stool: (7) Hyperlipidemia: QUALIFIERS: Hyperlipidemia type: unspecified Qualified Code(s): E78.5 - Hyperlipidemia, unspecified (8) Vitamin D deficiency: PLAN: she takes a supplement and the vitamin D level is WNL at admission to the hospital (9) HTN (hypertension): QUALIFIERS: Hypertension type: primary hypertension Qualified Code(s): I10 - Essential (primary) hypertension (10) Uncontrolled type 2 diabetes mellitus: QUALIFIERS: Glycemic state: with hyperglycemia Qualified Code(s): E11.65 - Type 2 diabetes mellitus with hyperglycemia PLAN: Takes no medication as an OP. Has refused insulin in the past when Dr. Nesbitt recommended. Is agreeable to insulin in the hospital if it will help with healing. (11) PAC (premature atrial contraction): PLAN: Plan PLAN PT for gait stability OT for ADL's Analgesics as needed Bowel protocol Fall precautions Assess for Anxiety/Depression GI prophylaxis -not necessary at this time. She denies epigastric pain, heartburn, nausea, vomiting and also denies history of peptic ulcer disease. Hemoglobin was normal at admission to the hospital. Hemoccult stool is positive however she has been constipated and may have hemorrhoids. Will periodically monitor the hemoglobin and hematocrit. DVT prophylaxis with Eliquis 2.5 mg twice daily Follow up with Dr. Nesbitt and Dr. Swift following DC from [facility]. She also sees an swimming pool maintenance supervisor and receives injections in her eyes. AM lab including CMP, CBC, Mag and Phos - personally reviewed. Insulin regimen adjusted. Would like to see all BS's < 200 with no hypoglycemia. does not think she will take insulin when she is discharged from rehab. We discussed how high BS's lead to polyuria and the importance of maintaining good fluid intake to prevent dehydration. We also discussed how uncontrolled BS's can put her at risk for infection. Recommended she see a dentist in the future. Charges/Coding Visit Charges Inpatient E&M: 57710 Init Hosp L2
--- NOTE | 2025-01-28 11:08 | PCM.RU.PYE ---
Admission Information Primary Diagnosis:: Debility secondary to hip fracture/ORIF Status Changes from Prescreening?: No changes Identified Actual Problem List:: Falls, Skin Intergrity, Pain, ALteration in Cmfrt, Mobility Impaired, Self Care Deficit, Diabetes, Hyperglycemia, BP, Hypertension and Alteration-Leisure Activ. Potential Problem List:: DVT, Bleeding, Infection, UTI, Aspiration, Falls, Skin Integrity and Depression Risk of Complications DVT: ROWDY Hose and - (Apixaban 2.5 mg twice daily) Bleeding: Monitor Lab Values, Nursing to Teach Precautions for anti-coagulation therapy., Wound, if applicable, to be assessed every shift. and Stroke patients assessed for lethargy or change in status. Infection: Clinical Staff to Monitor for S/S of infection: and S/S of infection include fever, redness, warmth, etc. Urinary Tract Infection: Monitor for frequency, burning, discomfort, or incontinence. and Nursing will obtain urine sample for urinalysis and C&S when ordered. Aspiration: Clinical staff will monitor for coughing, drooling, congestion., Speech will evaluate swallowing and dsyphasia. and Nursing will monitor patient swallowing during meals. Falls: Patient will be evaluated for Fall Precautions and Patient will be placed on Fall Precautions as indicated per protocol. Skin Breakdown: Nursing will assess skin daily using assessment tool. and Nursing will place on Skin Breakdown Precautions as indicated. Pain: Clinical staff will assess patient's pain level per protocol., Medications will be given, if needed, and the pain level reassessed. and Other methods: Massage, distraction, decrease stimulus, etc. used PRN. Plan of Care Patient requires physician specializing in physical medicine and rehab oversight to provide close medical supervision of rehab issues including: Pain Management, Sleep Problems, Bowel and Bladder, Medical and co-morbidity Management, DVT prophylaxis, Rehabilitation Leadership and Coordination of treatment team Patient needs Physical Therapy: For a minimum of 1 hour and At least 5 out of 7 days Patient needs Physical Therapy to improve:: Mobility, Strengthening, Transfers, Stretching, ROM, Endurance, Stairs, Gait and Balance Patient needs Occupational Therapy: For a minimum of 1 hour and At least 5 out of 7 days Patient needs Occupational Therapy to improve ADL's incl.: Eating, Grooming, Bathing, Dressing, Toileting, Toilet transfers, Community Reintegration, Higher functioning activities, Household tasks, Adaptive Equipment, Splinting and Other activities as determined Patient requires 24/7 Rehabilitation Nursing for: Pain Issues, Identifying and preventing risk factors, Monitoring and reporting current medical conditions, Assisting with ambulation, transfer, and all ADL's, Teaching patients about disease process and medications, Family teaching, Providing safe environment, Bowel and Bladder Issues, Skin integrity and Medication Management Patient needs Vocational Placement Specialist/ Case Management for: Discharge Planning, Arranging Home Equipment or Services and Family Interventions Patient needs Dietary and Nutrition Services for: Adequate Nutrition, Nutritional Supplements and Nutritional Education Goals Goals Patient will remain: free from falls Patient will perform eating at: MOD I level of assist. Patient will perform bed mobility at: MOD I level of assist. Patient will complete transfers from bed to chair at: MOD I level of assist. Patient will ambulate: - (Greater than 500 feet with least restrictive device at modified) Patient will complete upper body dressing at: MOD I level of assist. Patient will complete lower body dressing at: MOD I level of assist. (Using adaptive equipment as needed.) Patient will complete toilet transfer at: MOD I level of assist. Patient will complete toileting at: MOD I level of assist. Patient will perform bathing at: MOD I level of assist. (Upper body bathing independently and lower body bathing at mod I using adaptive equipment as needed to facilitate increased independence with self-care.) Patient will perform Tub/Shower transfer at: MOD I level of assist. Patient will complete grooming at: MOD I level of assist. (While standing at the sink) Patient will complete home management skills at: MOD I level of assist. Patient will achieve: - (Ascend/descend a full flight of stairs with 1 handrail) Patient will have pain level of: of 3 or less Patient's skin will: remain intact Patient will receive: adequate nutrition. Discharge Planning Pt Prognosis for Sig. Practical Improv. w/in Reasonable Time: Good Estimated Length of stay (days): 21 Anticipated D/C Destination: Home with Home Health ([facility] if she does not have transportation to OP.) Was Preadmission Assessment Accurate?: Yes
[2025-01-28 16:44] VITALS: BP 130/60; PULSE 83; RESP 18; TEMP 36.8; O2SAT 99
[2025-01-28] MEDS: Insulin Glargine-YFGN 100 UNIT/ML Pen 15 UNIT SC (22:01)
[2025-01-28] MEDS: Latanoprost 0.005% 1 Bottle 1 DRP OPHTHALMIC (22:02)
[2025-01-29 06:00] VITALS: BP 122/47; PULSE 56; RESP 18; TEMP 36.4; O2SAT 99
[2025-01-29] MEDS: Insulin Glargine-YFGN 100 UNIT/ML Pen 25 UNIT SC (08:44)
[2025-01-29] MEDS: Senna/Docusate Sodium 1 Tablet 2 TABLET PO (08:44)
[2025-01-29] MEDS: APIXABAN 2.5 MG TABLET (WCH) PO ×2 (08:44→19:55)
[2025-01-29] MEDS: Dorzolamide HCL/Timolol 10 ml Bottle 1 DRP EACH EYE ×2 (08:47→19:57)
[2025-01-29] MEDS: 0.9% Saline Lock 10 ML Syringe IV (08:48)
[2025-01-29 08:53] VITALS: BP 118/41; PULSE 101
[2025-01-29] MEDS: Arthritis Pain Compound 60 CLICK TUBE TOPICAL ×2 (10:14→21:20)
[2025-01-29 14:09] VITALS: BMI 29.2
[2025-01-29 18:00] VITALS: BP 121/61; PULSE 95; RESP 15; TEMP 36.9; O2SAT 98
[2025-01-29 19:45] VITALS: PULSE 95; RESP 15; O2SAT 98
[2025-01-29] MEDS: Latanoprost 0.005% 1 Bottle 1 DRP OPHTHALMIC (19:57)
[2025-01-29] MEDS: Insulin Glargine-YFGN 100 UNIT/ML Pen 15 UNIT SC (20:03)
[2025-01-30 06:00] VITALS: BP 161/62; PULSE 94; RESP 17; TEMP 36.9; O2SAT 98
--- NOTE | 2025-01-30 07:47 | PN_ITS ---
Subjective Subjective Titus was seen on team rounds today. Her granddaughter tomorrow was present in the room for rounds. All questions were answered to their satisfaction. Afebrile VSS -the blood pressure over the past 24 hours has ranged from 118/41 to 161/62 and that was this a.m. at 6 AM. Heart rate has ranged from 56-101 over the past 24 hours. Since last evening it has been in the mid 90s. Maintaining appropriate oxygen saturation on RA Oral intake - FOOD good FLUIDS good Blood sugar record was reviewed. Blood sugars are under excellent control. No hypoglycemia but the fasting this morning is 83. Discussed with nursing - no problems that need addressed Reviewed the THERAPY notes Medication list reviewed. Tolerating insulin with no side effects. She tells me that she has had a lot of Side effects with oral medication in the past. She takes medication from a citizen participation specialist to control diabetes.......obviously not working because hemoglobin A1c is 13.6. Titus denies lightheadedness, cephalgia, chest pain, palpitations, shortness of breath, cough, nausea/vomiting/abdominal pain, dysuria and calf tenderness. She tells me that she slept very well last night and she also tells me that the pain with therapy increases but it gets better when she sits down and this is tolerable to her. She has not taken any oxycodone since 01/29/2020 5 in the AM. She is on Tylenol 1 g p.o. every 8 hours which seems to be controlling her pain. Objective Data Objective Data Vital Signs: Vital Signs Temp Pulse Resp BP Pulse Ox O2 Del Method 98.4 F 94 17 161/62 H 98 Room Air 01/30/25 06:00 01/30/25 06:00 01/30/25 06:00 01/30/25 06:00 01/30/25 06:00 01/30/25 06:00 Oxygen Delivery Method Room Air Weight: 159 lb Body Mass Index (BMI) 29.2 Intake & Output: Intake and Output for Last 24 Hours 01/28/25 01/29/25 01/30/25 23:59 23:59 23:59 Intake Total 1330 / 1330 1450 / 1750 500 / 500 Output Total 1974 / 1974 700 / 1000 1400 / 1400 Balance -645 / -645 750 / 750 -900 / -900 Lab / Micro Data 01/28/25 05:33 01/28/25 05:33 Labs: Laboratory Results - last 24 hr 01/29/25 11:22: POC Glucose 142 H 01/29/25 16:46: POC Glucose 139 H 01/29/25 20:01: POC Glucose 108 H 01/30/25 06:43: POC Glucose 83 Micro: Microbiology 01/27/25 21:30 Stool Stool Occult Blood ([place]) - Final Occult Blood Positive Physical Exam Const alert and no apparent distress HEENT HEENT Narrative: MM are dry but, better than at admission since she has had less polyuria Mouth: dry mucous membranes Resp normal respiratory effort and no retractions Cardio Cardio Narrative: Resting HR is increased. She is regularly dropping beats. Underlying rhythm is regular. GI normal to inspection, nondistended, normoactive bowel sounds, soft to palpation and non-tender GI Narrative: No guarding with palpation. Had a bowel movement yesterday. Extremity no calf tenderness General Extremity: Negative for edema Neuro CN's II-XII intact bilaterally and no focal motor deficits Neuro Narrative: Sensory loss in her feet and she knows she has neuropathy. Psych affect normal and denies suicidal ideation Assessment & Plan Assessment/Plan (1) Physical debility: (2) Fall: QUALIFIERS: Encounter type: subsequent encounter Qualified Code(s): W19.XXXD - Unspecified fall, subsequent encounter (3) Closed fracture of right hip: QUALIFIERS: Encounter type: initial encounter Qualified Code(s): S72.001A - Fracture of unspecified part of neck of right femur, initial encounter for closed fracture (4) History of open reduction and internal fixation (ORIF) procedure: (5) Acute blood loss as cause of postoperative anemia: (6) Heme positive stool: (7) Hyperlipidemia: QUALIFIERS: Hyperlipidemia type: unspecified Qualified Code(s): E 78.5 - Hyperlipidemia, unspecified (8) Vitamin D deficiency: (9) HTN (hypertension): QUALIFIERS: Hypertension type: primary hypertension Qualified Code(s): I10 - Essential (primary) hypertension (10) Uncontrolled type 2 diabetes mellitus: QUALIFIERS: Glycemic state: with hyperglycemia Qualified Code(s): E11.65 - Type 2 diabetes mellitus with hyperglycemia (11) PAC (premature atrial contraction): PLAN: Plan 1. Continue therapy 2. Decrease the at bedtime glargine to 12 units. May need to decrease the mealtime insulin at supper to 2 units. 3. DC the sliding scale. 4. Nursing to assess and treat the opening in the skin on her backside. 5. EKG today 6. Would like to do a 30-day event monitor as an outpatient. We spent time in education today. We pointed out that the natural things that she is getting to control her diabetes aren't really working. She perseverates on side effects she has had to medications from Dr. Nesbitt the in past. She admits that the insulin is not causing any adverse reactions at this time. We discussed why the blood sugars are elevated.......either due to decreased insulin production or to resistance to her own insulin. She is convinced that she got diabetes because of a medication that was used to control her BP. She eats peppermint candy to help prevent infections, like COVID, and she also takes liquid Echinacea. She will think about continuing with Glargine once a day at DC......BS's will not be optimally controlled but they would be better than they are now and it will likely cut down on the polyuria. I spoke on the phone with her POA Oral Willard today and updated him. Charges/Coding Visit Charges Inpatient E&M: 63769 Subs Hosp L2
[2025-01-30] MEDS: Arthritis Pain Compound 60 CLICK TUBE TOPICAL ×2 (08:54→21:29)
[2025-01-30] MEDS: APIXABAN 2.5 MG TABLET (WCH) PO ×2 (08:54→21:31)
[2025-01-30] MEDS: Insulin Glargine-YFGN 100 UNIT/ML Pen 25 UNIT SC (08:55)
[2025-01-30] MEDS: Dorzolamide HCL/Timolol 10 ml Bottle 1 DRP EACH EYE ×2 (08:56→21:29)
--- NOTE | 2025-01-30 13:40 | CASEMGMT ---
Social Work IDT met with patient and xochitl Contreras for Team meeting. Left VM with nephew, Oral, per pt's request. Discussed patient's progress in PT/OT/SN/MD. Educated to Medicare approval of 11 days with DC 02/07. Pt is progressing well and will be safe to return home. Recommending check-ins from family/friends for support initially after DC. Pt agreed. SW educated to skilled HHC vs OP therapy and DME needs. Pt prefers skilled HHC. SW provided list of skilled HHC agencies within geographical area, INN with insurance, that include quality and resource data via [employer] guide. SW educated HHC agency will contact pt for SOC date date, but typically 2-3 days after DC, pending PCP signing orders. Pt to select preferences and SW will follow up closer to DC. Glendy Maldonado MSW LAB HEAD
--- NOTE | 2025-01-30 16:16 | CHAPLAIN ---
Type of Pastoral Visit ___ Initial Visit _x__ Follow-up Visit ___ On-call Visit ___ General Patient Visit ___ Spiritual Assessment ___ Family Conference ___ Bereavement ___ Rapid Response ___ Code Blue ___ Other (describe below) Pastoral Care Referral From _x__ Patient ___ Family ___ Nurse ___ Physician ___ Senior Administrative Associate ___ Police Records Clerk ___ Other (describe below) Sacrament/Intervention _x__ Active listening ___ Anointing ___ Roman Catholic ___ Bereavement ___ Communion _x__ Trinity exploration ___ _x__ Life review _x__ Prayer ___ Reconciliation ___ Sacrament of Sick ___ Supportive presence ___ Wedding ___ Other (describe below) Pastoral Comments
[2025-01-30 18:00] VITALS: BP 144/63; PULSE 85; RESP 16; TEMP 36.5; O2SAT 99
[2025-01-30 20:41] VITALS: PULSE 86; RESP 16; O2SAT 100
[2025-01-30] MEDS: Latanoprost 0.005% 1 Bottle 1 DRP OPHTHALMIC (21:29)
[2025-01-30] MEDS: Insulin Glargine-YFGN 100 UNIT/ML Pen 12 UNIT SC (21:30)
[2025-01-30] MEDS: Senna/Docusate Sodium 1 Tablet 2 TABLET PO (21:31)
[2025-01-31 06:00] VITALS: BP 135/74; PULSE 83; RESP 14; TEMP 36.7; O2SAT 96
[2025-01-31] MEDS: Dorzolamide HCL/Timolol 10 ml Bottle 1 DRP EACH EYE ×2 (08:19→20:59)
[2025-01-31] MEDS: Insulin Glargine-YFGN 100 UNIT/ML Pen 25 UNIT SC (08:19)
[2025-01-31] MEDS: Arthritis Pain Compound 60 CLICK TUBE TOPICAL ×2 (08:20→20:59)
[2025-01-31] MEDS: APIXABAN 2.5 MG TABLET (WCH) PO ×2 (08:20→20:59)
--- NOTE | 2025-01-31 12:49 | PN_ITS ---
Subjective Subjective Afebrile Blood pressure is for the most part well-controlled. Occasional high systolic blood pressure. Diastolics have always been within goal. Heart rate is within normal limits Maintaining appropriate oxygen saturation on room air Good appetite and good fluid intake. Blood sugar record was reviewed. Got hypoglycemic this AM at about 10:20 with a BS of 52. Tells me that pain is well controlled. Sleeping well at night. No CP, SOB, palpitations, dysuria, calf pain. Objective Data Objective Data Vital Signs: Vital Signs Temp Pulse Resp BP Pulse Ox O2 Del Method 98.0 F 83 14 135/74 H 96 Room Air 01/31/25 06:00 01/31/25 06:00 01/31/25 06:00 01/31/25 06:00 01/31/25 06:00 01/31/25 09:51 Oxygen Delivery Method Room Air Weight: 159 lb Body Mass Index (BMI) 29.2 Intake & Output: Intake and Output for Last 24 Hours 01/29/25 01/30/25 01/31/25 23:59 23:59 23:59 Intake Total 1450 / 1750 1620 / 1620 390 / 390 Output Total 700 / 1000 1950 / 1950 750 / 750 Balance 750 / 750 -330 / -330 -360 / -360 Lab / Micro Data 01/28/25 05:33 01/28/25 05:33 Labs: Laboratory Results - last 24 hr 01/30/25 17:03: POC Glucose 93 01/30/25 21:27: POC Glucose 264 H 01/31/25 06:12: POC Glucose 108 H 01/31/25 11:06: POC Glucose 117 H Micro: Microbiology 01/27/25 21:30 Stool Stool Occult Blood ([place]) - Final Occult Blood Positive Physical Exam Const alert, oriented x3 and no apparent distress General Appearance: cooperative Resp clear to auscultation bilaterally Cardio regular rate and regular rhythm Cardio Narrative: Fairly frequent ectopics. GI normal to inspection, nondistended, normoactive bowel sounds, soft to palpation and non-tender Extremity no calf tenderness General Extremity: Negative for edema Skin Skin Narrative: incision intact with no dehiscence. No DC and no coby-incisional erythema. Rashes: no rashes Psych affect normal Assessment & Plan Assessment/Plan (1) Physical debility: (2) Fall: QUALIFIERS: Encounter type: subsequent encounter Qualified Code(s): W19.XXXD - Unspecified fall, subsequent encounter (3) Closed fracture of right hip: QUALIFIERS: Encounter type: initial encounter Qualified Code(s): S72.001A - Fracture of unspecified part of neck of right femur, initial encounter for closed fracture (4) History of open reduction and internal fixation (ORIF) procedure: (5) Acute blood loss as cause of postoperative anemia: (6) Heme positive stool: (7) Hyperlipidemia: QUALIFIERS: Hyperlipidemia type: unspecified Qualified Code(s): E 78.5 - Hyperlipidemia, unspecified (8) Vitamin D deficiency: (9) HTN (hypertension): QUALIFIERS: Hypertension type: primary hypertension Qualified Code(s): I10 - Essential (primary) hypertension (10) Uncontrolled type 2 diabetes mellitus: QUALIFIERS: Glycemic state: with hyperglycemia Qualified Code(s): E11.65 - Type 2 diabetes mellitus with hyperglycemia (11) PAC (premature atrial contraction): PLAN: Plan 1. Continue therapy 2. DC the AM lispro and continue with only Glargine BID, 25 in the AM and 6 at HS. May not be optimal BS control but, she is more likely to continue Insulin at home if she only has to take 1 shot a day. 3. BMP and CBC Monday. Charges/Coding Visit Charges Inpatient E&M: 72585 Subs Hosp L1
[2025-01-31 16:33] VITALS: BP 131/67; PULSE 85; RESP 16; TEMP 36.9; O2SAT 99
[2025-01-31] MEDS: Insulin Glargine-YFGN 100 UNIT/ML Pen 6 UNIT SC (20:59)
[2025-01-31] MEDS: Latanoprost 0.005% 1 Bottle 1 DRP OPHTHALMIC (21:00)
[2025-01-31 22:00] VITALS: O2SAT 97
[2025-02-01 06:00] VITALS: BP 129/61; PULSE 92; RESP 14; TEMP 37; O2SAT 97
[2025-02-01] MEDS: Arthritis Pain Compound 60 CLICK TUBE TOPICAL ×2 (08:11→21:35)
[2025-02-01] MEDS: APIXABAN 2.5 MG TABLET (WCH) PO ×2 (08:12→21:36)
[2025-02-01] MEDS: Ergocalciferol 1.25 MG (50, 000 UNIT) Capsule PO (08:12)
[2025-02-01] MEDS: Insulin Glargine-YFGN 100 UNIT/ML Pen 25 UNIT SC (08:13)
[2025-02-01] MEDS: Dorzolamide HCL/Timolol 10 ml Bottle 1 DRP EACH EYE ×2 (08:15→21:36)
[2025-02-01 08:44] VITALS: O2SAT 96
[2025-02-01 16:48] VITALS: BP 136/60; PULSE 79; RESP 17; TEMP 36.8; O2SAT 99
[2025-02-01 21:30] VITALS: O2SAT 96
[2025-02-01] MEDS: Latanoprost 0.005% 1 Bottle 1 DRP OPHTHALMIC (21:35)
[2025-02-02 05:34] VITALS: BP 152/73; PULSE 81; RESP 16; TEMP 36.5; O2SAT 100
[2025-02-02] MEDS: Arthritis Pain Compound 60 CLICK TUBE TOPICAL ×2 (09:14→22:53)
[2025-02-02] MEDS: Dorzolamide HCL/Timolol 10 ml Bottle 1 DRP EACH EYE ×2 (09:14→22:55)
[2025-02-02] MEDS: Insulin Glargine-YFGN 100 UNIT/ML Pen 25 UNIT SC (09:15)
[2025-02-02] MEDS: APIXABAN 2.5 MG TABLET (WCH) PO ×2 (09:15→22:56)
[2025-02-02 17:58] VITALS: BP 104/57; PULSE 65; RESP 16; TEMP 36.7; O2SAT 100
[2025-02-02 22:00] VITALS: O2SAT 99
[2025-02-02 22:40] VITALS: BP 124/62; PULSE 85; RESP 12; TEMP 37.2; O2SAT 99
[2025-02-02] MEDS: Latanoprost 0.005% 1 Bottle 1 DRP OPHTHALMIC (22:56)
[2025-02-02] MEDS: Senna/Docusate Sodium 1 Tablet 2 TABLET PO (22:57)
[2025-02-03 05:48] LABS: Hematocrit 31.0 % (37-47); Hemoglobin 10.1 g/dL (12.0-15.0); Mean Corp Hgb Conc 32.6 g/dL (32-36); Mean Corpuscular Volume 89.3 fL (81-99); Mean Platelet Vol. 9.7 fl (6.2-12.0); Platelet Count 392 K/mm3 (150-450); RBC Distribution Width CV 13.2 % (11.6-14.6); RBC Distribution Width SD 43.0 fl (35.1-43.9); Red Blood Count 3.47 M/mm3 (4.2-5.4); White Blood Count 6.0 K/mm3 (4.4-11.0)
[2025-02-03 06:00] VITALS: BP 135/61; PULSE 85; RESP 20; TEMP 36.9; O2SAT 96
[2025-02-03 06:17] LABS: Anion Gap 10 (5-15); BUN 16 mg/dL (4-19); BUN/Creat Ratio 27.4 RATIO (10-20); Calcium,Total 9.1 mg/dL (7.6-11.0); Carbon Dioxide 26.1 mmol/L (21.0-32.0); Chloride 104 mmol/L (98-108); Estimated Creatinine Clearance 46.94 ml/min (50-250); Glucose 86 mg/dL (70-99); Potassium 4.7 mmol/L (3.3-5.1)
--- NOTE | 2025-02-03 08:21 | PN_ITS ---
Subjective Subjective Afebrile VSS -blood pressure is controlled with no hypotension and no dizziness. Maintaining appropriate oxygen saturation on RA Oral intake - FOOD good FLUIDS good The blood sugar record was reviewed. Fasting blood sugars are good. Mealtime BS's are less than 250. She had a BS done at 7:15 PM last night? It was 264? HS sugar was 206 and the fasting this morning is 104. Discussed with nursing - no problems that need addressed Reviewed the THERAPY notes Medication list reviewed. All lab from this morning was personally reviewed. The white blood cell count is normal. Hemoglobin is 10, down from 10.6 at admission to the rehab unit. Platelets are within normal limits. Sodium is 140 and the potassium is 4.7. BUN is stable at 16 and the creatinine is stable at 0.58. Tells me that she is good with current pain control......Very rarely takes a Oxy. Denies CP, SOB, lightheadedness, calf pain and dysuria. Objective Data Objective Data Vital Signs: Vital Signs Temp Pulse Resp BP Pulse Ox O2 Del Method 98.4 F 85 20 H 135/61 H 96 Room Air 02/03/25 06:00 02/03/25 06:00 02/03/25 06:00 02/03/25 06:00 02/03/25 06:00 02/03/25 06:00 Oxygen Delivery Method Room Air Weight: 159 lb Body Mass Index (BMI) 29.2 Intake & Output: Intake and Output for Last 24 Hours 02/01/25 02/02/25 02/03/25 23:59 23:59 23:59 Intake Total 2900 / 2900 2250 / 2250 250 / 250 Output Total 3700 / 3700 2375 / 2375 Balance -800 / -800 -125 / -125 250 / 250 Lab / Micro Data 02/03/25 05:31 02/03/25 05:31 Labs: Laboratory Results - last 24 hr 02/02/25 11:51: POC Glucose 109 H 02/02/25 17:07: POC Glucose 126 H 02/02/25 19:15: POC Glucose 264 H 02/02/25 22:06: POC Glucose 206 H 02/03/25 05:31: WBC 6.0, RBC 3.47 L, Hgb 10.1 L, Hct 31.0 L, MCV 89.3, MCH 29.1, MCHC 32.6, RDW Std Deviation 43.0, RDW Coeff of Jasmin 13.2, Plt Count 392, MPV 9.7, Sodium 140, Potassium 4.7, Chloride 104, Carbon Dioxide 26.1, Anion Gap 10, BUN 16, Creatinine 0.58 L, Estim Creat Clear Calc 46.94 L, Est GFR (MDRD) Non-Af 88, BUN/Creatinine Ratio 27.4 H, Glucose 86, Calcium 9.1 02/03/25 06:42: POC Glucose 104 Micro: Microbiology 01/27/25 21:30 Stool Stool Occult Blood ([place]) - Final Occult Blood Positive Physical Exam Const alert, oriented x3 and no apparent distress General Appearance: cooperative Resp clear to auscultation bilaterally Cardio regular rate, regular rhythm and no gallops GI normal to inspection, nondistended, normoactive bowel sounds, soft to palpation and non-tender Extremity no calf tenderness General Extremity: Negative for edema Skin Skin Narrative: incision intact with no dehiscence. No DC and no coby-incisional erythema. Rashes: no rashes Psych affect normal Assessment & Plan Assessment/Plan (1) Physical debility: (2) Fall: QUALIFIERS: Encounter type: subsequent encounter Qualified Code(s): W19.XXXD - Unspecified fall, subsequent encounter (3) Closed fracture of right hip: QUALIFIERS: Encounter type: initial encounter Qualified Code(s): S72.001A - Fracture of unspecified part of neck of right femur, initial encounter for closed fracture (4) History of open reduction and internal fixation (ORIF) procedure: (5) Acute blood loss as cause of postoperative anemia: (6) Heme positive stool: (7) Hyperlipidemia: QUALIFIERS: Hyperlipidemia type: unspecified Qualified Code(s): E 78.5 - Hyperlipidemia, unspecified (8) Vitamin D deficiency: (9) HTN (hypertension): QUALIFIERS: Hypertension type: primary hypertension Qualified Code(s): I10 - Essential (primary) hypertension (10) Uncontrolled type 2 diabetes mellitus: QUALIFIERS: Glycemic state: with hyperglycemia Qualified Code(s): E11.65 - Type 2 diabetes mellitus with hyperglycemia (11) PAC (premature atrial contraction): PLAN: Plan 1. Continue therapy 2. Continue glargine once daily in the a.m. Change the blood sugars to twice daily at lunch and bedtime. May be able to get her to take Insulin once a day........very doubtful she will do more than 1 shot daily but if we can keep the BS's all less than 250 this would be an improvement. 3. check another HH prior to DC - if it continues to drop will need to consider GI eval. She has heme+ stool. HGB was normal at admission to the hospital. Likely the HGB is a little less due to acute blood loss related to surgery and to better hydration since she is having a lot less polyuria. Charges/Coding Visit Charges Inpatient E&M: 48733 Subs Hosp L1
[2025-02-03] MEDS: Arthritis Pain Compound 60 CLICK TUBE TOPICAL ×2 (08:36→21:12)
[2025-02-03] MEDS: Insulin Glargine-YFGN 100 UNIT/ML Pen 25 UNIT SC (08:36)
[2025-02-03] MEDS: APIXABAN 2.5 MG TABLET (WCH) PO ×2 (08:37→21:12)
[2025-02-03] MEDS: Dorzolamide HCL/Timolol 10 ml Bottle 1 DRP EACH EYE ×2 (08:38→21:13)
[2025-02-03 18:00] VITALS: BP 138/56; PULSE 96; RESP 17; TEMP 36.8; O2SAT 97
[2025-02-03] MEDS: Latanoprost 0.005% 1 Bottle 1 DRP OPHTHALMIC (21:00)
[2025-02-04 06:00] VITALS: BP 118/64; PULSE 84; RESP 15; TEMP 36.7; O2SAT 98
[2025-02-04] MEDS: Arthritis Pain Compound 60 CLICK TUBE TOPICAL ×2 (08:00→21:00)
[2025-02-04] MEDS: Dorzolamide HCL/Timolol 10 ml Bottle 1 DRP EACH EYE ×2 (08:00→21:01)
[2025-02-04] MEDS: APIXABAN 2.5 MG TABLET (WCH) PO ×2 (08:00→21:00)
[2025-02-04] MEDS: Insulin Glargine-YFGN 100 UNIT/ML Pen 25 UNIT SC (08:01)
--- NOTE | 2025-02-04 10:55 | PCM.PROGNOTE ---
Subjective Subjective Afebrile Blood pressure is controlled and within goal. No adverse side effects to the antihypertensive which is lisinopril. At bedtime sugar last night was 242. Fasting is always been in the low 100s. Blood sugars increase with meals. Accu-Cheks or before lunch and at bedtime now. Tells me that she did not sleep very well last night......she is wondering if it is the Oxycodone that kept her awake last night........it has not done this the last couple times it was given at night. No cough, no calf pain, no CP, No SOB. Objective Data Objective Data Vital Signs: Vital Signs Temp Pulse Resp BP Pulse Ox O2 Del Method 98.1 F 84 15 118/64 98 Room Air 02/04/25 06:00 02/04/25 06:00 02/04/25 06:00 02/04/25 06:00 02/04/25 06:00 02/04/25 06:00 Oxygen Delivery Method Room Air Weight: 159 lb Body Mass Index (BMI) 29.2 Intake & Output: Intake and Output for Last 24 Hours 02/02/25 02/03/25 02/04/25 23:59 23:59 23:59 Intake Total 2250 / 2250 1620 / 1620 240 / 240 Output Total 2375 / 2375 1500 / 1500 1400 / 1400 Balance -125 / -125 120 / 120 -1160 / -1160 Lab / Micro Data 02/03/25 05:31 02/03/25 05:31 Labs: Laboratory Results - last 24 hr 02/03/25 12:02: POC Glucose 143 H 02/03/25 21:36: POC Glucose 242 H Micro: Microbiology 01/27/25 21:30 Stool Stool Occult Blood ([place]) - Final Occult Blood Positive Physical Exam Const alert, oriented x3 and no apparent distress General Appearance: cooperative Resp normal respiratory effort and clear to auscultation bilaterally Cardio regular rate, regular rhythm, no rub and no gallops Cardio Narrative: Still with frequent ectopy.......she denies palpitations. GI normal to inspection, nondistended, normoactive bowel sounds, soft to palpation and non-tender Extremity no calf tenderness General Extremity: Negative for edema Assessment & Plan Assessment/Plan (1) Physical debility: (2) Fall: QUALIFIERS: Encounter type: subsequent encounter Qualified Code(s): W19.XXXD - Unspecified fall, subsequent encounter (3) Closed fracture of right hip: QUALIFIERS: Encounter type: initial encounter Qualified Code(s): S72.001A - Fracture of unspecified part of neck of right femur, initial encounter for closed fracture (4) History of open reduction and internal fixation (ORIF) procedure: (5) Acute blood loss as cause of postoperative anemia: (6) Heme positive stool: (7) Hyperlipidemia: QUALIFIERS: Hyperlipidemia type: unspecified Qualified Code(s): E78.5 - Hyperlipidemia, unspecified (8) Vitamin D deficiency: (9) HTN (hypertension): QUALIFIERS: Hypertension type: primary hypertension Qualified Code(s): I10 - Essential (primary) hypertension (10) Uncontrolled type 2 diabetes mellitus: QUALIFIERS: Glycemic state: with hyperglycemia Qualified Code(s): E11.65 - Type 2 diabetes mellitus with hyperglycemia (11) PAC (premature atrial contraction): PLAN: Plan 1. Continue therapy 2. Increase a.m. glargine to 30 units and continue to check Accu-Cheks with lunch and bedtime 3. Continue lisinopril 20 mg daily-no side effects and blood pressure is well-controlled 4. Planning discharge for Monday to home with home health care 5. Will follow up with Dr. elvin oliver [place] and she will also continue to follow up with Dr. Nesbitt. suspect she is not going to continue taking the insulin or Lisinopril.......her POA has been talking with her about this and I talk to her daily. Has had no problems with hypoglycemia since we are only doing 1 shot of Glargine daily. Charges/Coding Visit Charges Inpatient E&M: 48681 Subs Hosp L1
--- NOTE | 2025-02-04 13:55 | DCINST_ITS ---
Discharge Instructions DC O2, CPAP, BIPAP needs Home O2 Discharge instructions: No Dressing / Incision Discharge Activity: May Not Drive, May Shower and Use Walker Ice area for (Minutes): 10 (ice after exercise to assist with pain control) Weight Bearing Status: Full weight bearing Keep extremity elevated above heart level: Right Leg Dressing / Incision Call your doctor if your incision/area has: Continuous Slow Oozing, Sudden Increased Bleeding, Increased Pain/ Swelling, Increased Redness, Foul Smelling Discharge, Swelling at the incision site and - (Ok to leave open to air. ) Call your doctor if you observe: Fever of 101 or Higher, Shortness of breath, Dizziness, Fainting spells, Swelling in the ankles, Chest pain, Increased palpitations (irregular heartbeat), Calf discomfort and Uncontrolled pain Suture Line Care: Avoid Pulling/Pushing and Avoid Pinching/Bending Cleanse incision/area with: Soap & Water Additional Dressing/Incision Instructions:: OK to leave the incisions open to air. Follow Up Care Please Follow Up With: Apolinar Swift DO When: Appt is listed later in this document. You also have an appt with Dr. Nesbitt scheduled. Test Results: Test results from this visit will be discussed in further detail at your follow- up appointment, if applicable. Pending Tests Upon Discharge: none Discharge Plan Admission Admit Date/Time: 01/27/25 14:24 Primary Reason for Your Visit: Debility due to fall/R hip fracture Attending Provider: Haley Marcos Primary Care Provider: Yvonne Nesbitt Instructions Patient Instructions: Caring for Your Incision Additional Instructions / Restrictions: 1. Having surgery for a fractured hip increases risk for blood clots in the leg for about a month. You are taking a medication called Eliquis (also called Apixaban) twice a day to help prevent blood clots. You will need to take 17 more days of this drug after you leave rehab to finish out 30 days post op. 2. Your BP is well controlled on a medication called Lisinopril. Uncontrolled high blood pressure increases the risk for strokes and heart attacks and kidney failure. You have had no adverse side effects with this medication. I rec ommend you continue to take this medication following DC from rehab. 3. You blood sugars are doing much better than they were at home on just 1 shot of insulin daily. With uncontrolled blood sugars your risk for infection after a surgical procedure increases. I have seen people who get infections in the surgical site after joint surgery. Sometimes they need to take antibiotics for 6 weeks to clear the infection up and sometimes the hardware they used to fix the fracture needs to be removed. It is not an easy procedure. I recommend you continue taking the insulin to help prevent an infection in the surgical site. 4. You have mild anemia due to blood loss related to the fracture and surgery. This should correct itself in a few months. When we checked your stool for blood it was positive but, the anemia is not getting any worse so the blood in the stool may be due to hemorrhoids. 5. No driving until Dr. Swift and the physical therapist tell you it is OK to drive. Use the walker until the physical therapist tells you that it is OK to transition to a cane. 6. Do the exercises given to you by the therapists twice a day. Do not sit for longer than 1 hour without getting up and taking a walk around your house. 7. I am giving you a prescription for a few pain pills to have at home. Your pain at the time of Discharge from rehab is pretty well controlled on Tylenol 1,000 mg every 8 hours. sometimes when people are home they tend to do more and the pain gets worse. I want you to have something to take should you need it. 8. If you have any questions after you leave rehab please do not hesitate to call me. OFFICE: [phone] CELL: [phone] NURSES STATION ON REHAB: [phone] Discharge Orders/Prescriptions Prescriptions: New Arthritis Pain Compound 2 click topical BID Qty: 1 0RF Rx Instructions: apply to panful joints acetaminophen 500 mg Tablet 1,000 mg PO Q8H PRN PRN (Reason: fever or pain) Qty: 90 0RF Eliquis 5 mg Tablet 2.5 mg PO BID Qty: 34 0RF insulin glargine-yfgn 100 unit/mL (3 mL) Insulin Pen 30 unit subcut 0700 Qty: 3 5RF calcium carbonate-vitamin D3 [Calcium 600 with Vitamin D3] 600 mg-12.5 mcg (500 unit) capsule 1 cap PO BID Qty: 60 5RF Rx Instructions: Take with food (DME) pen needle, diabetic, safety 30 gauge x 3/16 needle See Rx Instructions .Route Qty: 100 5RF Rx Instructions: As directed Continued latanoprost 0.005 % drops 1 drp ophthalmic (eye) BID dorzolamide-timolol 22.3-6.8 mg/mL drops 1 drp ophthalmic (eye) QHS lisinopril 20 mg Tablet 20 mg PO DAILY Qty: 30 5RF Changed oxycodone 5 mg Tablet 5 mg PO Q6H PRN (Reason: pain) 7 Days Qty: 10 0RF Discontinued acetaminophen 325 mg Tablet 650 mg PO Q6H PRN PRN (Reason: Pain 1-10 Or Fever >100.7) Qty: 0 0RF calcium carbonate 200 mg calcium (500 mg) Tablet,Chewable 500 mg PO TIDCM Qty: 30 0RF ergocalciferol (vitamin D2) [Vitamin D2] 1,250 mcg (50,000 unit) Capsule 1,250 mcg PO Q7D Qty: 0 0RF Glucagon Emergency Kit (human) 1 mg Recon Soln 1 mg IM X1 PRN (Reason: Hypoglycemia) Qty: 0 0RF Eliquis 5 mg Tablet 2.5 mg PO BID Qty: 0 0RF insulin lispro [Humalog KwikPen Insulin] 100 unit/mL Insulin Pen See Protocol subcut ACHS Qty: 0 0RF Protocol: 2. Sliding Scale Insulin Low-Med Dosing Condition: 150-209 mg/dl = 1 unit Condition: 210-269 mg/dl = 2 units Condition: 270-329 mg/dl = 3 units Condition: 330-389 mg/dl = 4 units Condition: 390-449 mg/dl = 5 units Condition: Greater than 449 call physician Protocol Text: Suggested for: - Patients on Total Daily Insulin Dose of 28-36 units - Average body habitus patients LOW MEDIUM DOSING ALGORITHM insulin glargine-yfgn 100 unit/mL (3 mL) Insulin Pen 25 unit subcut BID Qty: 0 0RF sennosides-docusate sodium [Stimulant Laxative Plus] 8.6-50 mg Tablet 2 tab PO BID Qty: 0 0RF Referrals / Follow Up: Yvonne Nesbitt DO [Primary Care Provider] - 02/20/25 10:15 am Apolinar Swift DO [Med Staff - Active Staff] - 02/10/25 1:15 pm Disposition Disposition (needs filled in before D/C Order can be placed): Home Health Service
[2025-02-04 18:00] VITALS: BP 116/56; PULSE 87; RESP 16; TEMP 37.2; O2SAT 98
[2025-02-04] MEDS: Latanoprost 0.005% 1 Bottle 1 DRP OPHTHALMIC (20:58)
[2025-02-05 05:37] LABS: Hematocrit 31.1 % (37-47); Hemoglobin 10.3 g/dL (12.0-15.0); Mean Corp Hgb Conc 33.1 g/dL (32-36); Mean Corpuscular Volume 89.4 fL (81-99); Mean Platelet Vol. 9.6 fl (6.2-12.0); Platelet Count 418 K/mm3 (150-450); RBC Distribution Width CV 13.3 % (11.6-14.6); RBC Distribution Width SD 43.4 fl (35.1-43.9); Red Blood Count 3.48 M/mm3 (4.2-5.4); White Blood Count 5.8 K/mm3 (4.4-11.0)
[2025-02-05 06:00] VITALS: BP 162/79; PULSE 84; RESP 16; TEMP 36.6; O2SAT 97; BMI 28.8
[2025-02-05] MEDS: Insulin Glargine-YFGN 100 UNIT/ML Pen 30 UNIT SC (08:47)
[2025-02-05] MEDS: Dorzolamide HCL/Timolol 10 ml Bottle 1 DRP EACH EYE ×2 (08:47→21:48)
[2025-02-05] MEDS: Arthritis Pain Compound 60 CLICK TUBE TOPICAL ×2 (08:48→21:47)
[2025-02-05] MEDS: APIXABAN 2.5 MG TABLET (WCH) PO ×2 (08:48→21:49)
--- NOTE | 2025-02-05 12:20 | PN_ITS ---
Subjective Subjective Afebrile Vital signs are stable. Maintaining appropriate oxygen saturation on room air Slept very well last night per patient and nursing. Good appetite and good fluid intake All lab drawn this morning was personally reviewed. The white blood cell count is 5.8 and the hemoglobin is 10.3 which is stable. Platelet count is within normal limits. Sodium is 140 and the potassium is 4.7. The BUN is 16 which is stable and the creatinine is 0.58 which is within her baseline. Denies lightheadedness, chest pain, shortness of breath, calf pain, cough, dysuria. Alert, oriented x 3, pleasant and cooperative with therapy Mucous membranes are moist Lungs-clear to auscultation with excellent air exchange Heart-regular rate and rhythm with frequent ectopics but she is asymptomatic Abdomen-soft, nontender, nondistended, having regular bowel movements No calf tenderness and no ankle edema Objective Data Objective Data Vital Signs: Vital Signs Temp Pulse Resp BP Pulse Ox O2 Del Method 97.8 F 84 16 162/79 H 97 Room Air 02/05/25 06:00 02/05/25 06:00 02/05/25 06:00 02/05/25 06:00 02/05/25 06:00 02/05/25 06:00 Oxygen Delivery Method Room Air Weight: 156 lb 4.924 oz Body Mass Index (BMI) 28.8 Intake & Output: Intake and Output for Last 24 Hours 02/03/25 02/04/25 02/05/25 23:59 23:59 23:59 Intake Total 1620 / 1620 1640 / 1640 760 / 760 Output Total 1500 / 1500 3000 / 3000 950 / 950 Balance 120 / 120 -1360 / -1360 -190 / -190 Lab / Micro Data 02/05/25 05:25 02/03/25 05:31 Labs: Laboratory Results - last 24 hr 02/04/25 21:24: POC Glucose 204 H 02/05/25 05:25: WBC 5.8, RBC 3.48 L, Hgb 10.3 L, Hct 31.1 L, MCV 89.4, MCH 29.6, MCHC 33.1, RDW Std Deviation 43.4, RDW Coeff of Jasmin 13.3, Plt Count 418, MPV 9.6 02/05/25 06:31: POC Glucose 111 H 02/05/25 11:58: POC Glucose 111 H Micro: Microbiology 01/27/25 21:30 Stool Stool Occult Blood ([place]) - Final Occult Blood Positive Assessment & Plan Assessment/Plan (1) Physical debility: (2) Fall: QUALIFIERS: Encounter type: subsequent encounter Qualified Code(s): W19.XXXD - Unspecified fall, subsequent encounter (3) Closed fracture of right hip: QUALIFIERS: Encounter type: initial encounter Qualified Code(s): S72.001A - Fracture of unspecified part of neck of right femur, initial encounter for closed fracture (4) History of open reduction and internal fixation (ORIF) procedure: (5) Acute blood loss as cause of postoperative anemia: (6) Heme positive stool: (7) Hyperlipidemia: QUALIFIERS: Hyperlipidemia type: unspecified Qualified Code(s): E 78.5 - Hyperlipidemia, unspecified (8) Vitamin D deficiency: (9) HTN (hypertension): QUALIFIERS: Hypertension type: primary hypertension Qualified Code(s): I10 - Essential (primary) hypertension (10) Uncontrolled type 2 diabetes mellitus: QUALIFIERS: Glycemic state: with hyperglycemia Qualified Code(s): E11.65 - Type 2 diabetes mellitus with hyperglycemia (11) PAC (premature atrial contraction): PLAN: Plan 1. Continue therapy 2. Plan discharge on 02/07/2025 to home with home health care. Charges/Coding Visit Charges Inpatient E&M: 22447 Subs Hosp L1
[2025-02-05 18:00] VITALS: BP 146/78; PULSE 93; RESP 16; TEMP 37; O2SAT 99
[2025-02-05 21:28] VITALS: BP 132/67; PULSE 88; RESP 12; TEMP 36.8; O2SAT 98
[2025-02-05] MEDS: Latanoprost 0.005% 1 Bottle 1 DRP OPHTHALMIC (21:48)
[2025-02-06 06:00] VITALS: BP 140/73; PULSE 101; RESP 20; TEMP 36.5; O2SAT 96
[2025-02-06 07:07] LABS: Hematocrit 35.5 % (37-47); Hemoglobin 11.5 g/dL (12.0-15.0); Mean Corp Hgb Conc 32.4 g/dL (32-36); Mean Corpuscular Volume 89.2 fL (81-99); Mean Platelet Vol. 9.7 fl (6.2-12.0); Platelet Count 514 K/mm3 (150-450); RBC Distribution Width CV 13.5 % (11.6-14.6); RBC Distribution Width SD 44.0 fl (35.1-43.9); Red Blood Count 3.98 M/mm3 (4.2-5.4); White Blood Count 7.7 K/mm3 (4.4-11.0)
[2025-02-06 08:07] LABS: Anion Gap 12 (5-15); BUN 14 mg/dL (4-19); BUN/Creat Ratio 23.4 RATIO (10-20); Calcium,Total 9.5 mg/dL (7.6-11.0); Carbon Dioxide 26.0 mmol/L (21.0-32.0); Chloride 103 mmol/L (98-108); Estimated Creatinine Clearance 46.55 ml/min (50-250); Glucose 78 mg/dL (70-99); Potassium 4.2 mmol/L (3.3-5.1)
[2025-02-06] MEDS: Dorzolamide HCL/Timolol 10 ml Bottle 1 DRP EACH EYE ×2 (08:22→21:36)
[2025-02-06] MEDS: Insulin Glargine-YFGN 100 UNIT/ML Pen 30 UNIT SC (08:22)
[2025-02-06] MEDS: Arthritis Pain Compound 60 CLICK TUBE TOPICAL ×2 (08:22→21:35)
[2025-02-06] MEDS: APIXABAN 2.5 MG TABLET (WCH) PO ×2 (08:22→21:36)
--- NOTE | 2025-02-06 09:29 | DS.PCM_ITS ---
Providers Date of Admission: 01/27/25 Date of Discharge: 02/07/25 Primary Care Physician: Dr. Yvonne Nesbitt, DO none Reason For Visit: RIGHT HIP FRACTURE Diagnosis Discharge Diagnosis (1) Physical debility: Status: Acute Code(s): R53.81 - Other malaise (2) Fall: Status: Resolved Code(s): W19.XXXA - Unspecified fall, initial encounter Qualifiers: Encounter type: subsequent encounter Qualified Code(s): W19.XXXD - Unspecified fall, subsequent encounter Plan: Ground level fall while mowing her grass with a self propelled push mower. (3) Closed fracture of right hip: Status: Resolved Code(s): S72.001A - Fracture of unspecified part of neck of right femur, initial encounter for closed fracture Qualifiers: Encounter type: initial encounter Qualified Code(s): S72.001A - Fracture of unspecified part of neck of right femur, initial encounter for closed fracture (4) History of open reduction and internal fixation (ORIF) procedure: Status: Inactive Code(s): Z98.890 - Other specified postprocedural states Plan: Cephalomedullary nailing on 01/25/25 by Paul Gorman. Incisions are intact at the time of DC from rehab. No DC from the incisions. There is a small amount of rednessdue to reaction to the edison/traction but, no increased warmth to touch. She has an appt with Dr. Swift on Monday to remove edison. (5) Acute blood loss as cause of postoperative anemia: Status: Acute Code(s): D62 - Acute posthemorrhagic anemia Plan: Hemoglobin was 10.6 at arrival to inpatient rehab and on 02/06/2025 it is 11.5. She had a heme + stool but, I suspect this is due to hemorrhoids. No epigastric pain, no nausea and no vomiting. No hx of PUD. (6) Heme positive stool: Status: Acute Code(s): R19.5 - Other fecal abnormalities Plan: Suspect due to known hemorrhoidal disease. (7) Hyperlipidemia: Status: Inactive Code(s): E78.5 - Hyperlipidemia, unspecified Qualifiers: Hyperlipidemia type: unspecified Qualified Code(s): E78.5 - Hyperlipidemia, unspecified Plan: Refuses medication. (8) Vitamin D deficiency: Status: Inactive Code(s): E55.9 - Vitamin D deficiency, unspecified Plan: She will continue to take the Vitamin D supplement she has been taking at home prescribed by Dr. Nesbitt. Vitamin D level at admission to the hospital was within normal limits at 52.8. (9) HTN (hypertension): Status: Inactive Code(s): I10 - Essential (primary) hypertension Qualifiers: Hypertension type: primary hypertension Qualified Code(s): I10 - Essential (primary) hypertension Plan: Controlled with Lisinopril 20 mg daily at ID from rehab. No cough and no lightheadedness. (10) Uncontrolled type 2 diabetes mellitus: Status: Inactive Qualifiers: Glycemic state: with hyperglycemia Qualified Code(s): E11.65 - Type 2 diabetes mellitus with hyperglycemia Plan: Blood sugars are much improved with Glargine 30 units daily in the AM and a 2000 calorie carb consistent diet. No hypoglycemia. Pt was agreeable to a RX for insulin at ID from rehab. She was instructed by nursing on how to give the insulin. Recent HS blood sugars range form 200-220. Other blood sugars are all less than 200. she has very poor eyesight. Will need a table magnifier to be able to accurately dose the Glargine. Will discuss with her nephew and have him purchase one. Will have SN with [facility] at ID. (11) PAC (premature atrial contraction): Status: Chronic Code(s): I49.1 - Atrial premature depolarization Plan: EKG showed NSR with PAC's and NS ST and T wave changes. PAC's have been frequent. (12) Macular degeneration of both eyes: Status: Acute Code(s): H35.30 - Unspecified macular degeneration Qualifiers: Macular degeneration type: unspecified type Qualified Code(s): H35.30 - Unspecified macular degeneration Plan: Limited vision......needs to use a magnifying glass to be able to read. Will continue to follow up with her instructional technology facilitator. (13) Glaucoma: Status: Acute Code(s): H40.9 - Unspecified glaucoma Qualifiers: Glaucoma type: unspecified Laterality: bilateral Qualified Code(s): H 40.9 - Unspecified glaucoma Plan 1. Discharge Monday02/07/2025 to home with home health care. 2. Will continue Eliquis 2.5 mg BID for 17 more days to finish 30 days of DVT prophylaxis post hip fx/ORIF. She will not drink sassafras tea again until she is off the Eliquis. 3. She is agreeable to getting RX's for Insulin and Glargine and RX's were sent to the retail pharmacy at [facility]. Nursing instructed in administration of insulin with an insulin pen. 4. She will continue to take the Vitamin D supplement she has been taking at home Prescribed by Dr. Nesbitt. Vitamin D is WNL. Calcium is normal. 5. DME - FWW 6. Follow up has been scheduled with Dr. Swift and with Dr. Nesbitt. 7. Refused RX's for calcium plus D, arthritis compounded cream (she will resume the cream she has been using at home on painful joints), Tylenol (her nephew has purchased Tylenol for her to have a t home). 8. Will ask her nephew to purchase a table mounted magnifying glass. Medications at Discharge Home Medications dorzolamide 22.3 mg-timolol 6.8 mg/mL eye drops 1 drp ophthalmic (eye) QHS eye 01/24/25 latanoprost 0.005 % eye drops 1 drp ophthalmic (eye) BID eye heal 01/24/25 Arthritis Pain Compound 2 click topical BID #1 tube 02/06/25 acetaminophen 500 mg tablet 1,000 mg (2 x 500 mg) PO Q8H PRN PRN fever or pain #90 tabs 02/06/25 apixaban 2.5 mg tablet (Eliquis) 2.5 mg PO BID #34 tabs 02/06/25 calcium 600 mg (as carbonate)-vitamin D3 12.5 mcg (500 unit) capsule (Calcium with Vit D3) 1 cap PO BID #60 caps 02/06/25 insulin glargine-yfgn 100 unit/mL (3 mL) subcutaneous pen 30 unit (0.3 mL) subcut 0700 #3 pens 02/06/25 lisinopril 20 mg tablet 20 mg PO DAILY blood pressure #30 tabs 02/06/25 oxycodone 5 mg tablet 5 mg PO Q6H PRN pain 1 week #10 tabs 02/06/25 pen needle, diabetic, safety 30 gauge x 09/29 #100 ea 02/06/25 Hospital Course Operations - (Cephalomedullary nailing of right hip fracture on 01/25/[address] Apolinar Swift.) Procedures None Summary of Care Provided Minutes Spent on Discharge: 35 Hospital Course: GOOD CASAS, is a 84 YO F with a PMH of poorly controlled DM II (hemoglobin A1c was 13.6 at admission to [facility]), glaucoma, diabetic retinopathy, HTN (on no medications at admission to [facility] due to patients refusal), Vitamin D deficiency and hyperlipidemia. She refuses medications for diabetes, HTN and HLD. She prefers to use herbal medications. She presented to the emergency department at [facility] on 01/24/2025 after a ground-level fall in her yard. X-ray in the emergency room showed a nondisplaced oblique fracture of the intertrochanteric region of the proximal right femur with cephalic migration of the distal fracture fragment. Dr. Swift was consulted. She was taken to the OR on 01/25/2025 and had right proximal femur cephalomedullary nailing. Post operatively the HGB dropped from 12.9 to 11.1 and then to 10.6 at admission to rehab. She was agreeable to taking insulin/medication while in the hospital but, would not promise to continue post DC. She was transferred to the acute inpt rehab unit at [facility] on 01/27/25 for 3 hours of therapy daily to restore function/independence at or near her level prior to the hip fx. Blood sugars were not controlled at admission to rehab. Good has for quite some time refused tx for DM. We discussed that her risk for the surgery site to become infected was increased due to uncontrolled BS's. She agreed to take insulin while on rehab. She also agreed to take the antihypertensive. Her BP is adequately controlled at the time of DC from rehab. Insulin was adjusted and we agreed that we would try and keep the insulin at DC to one shot a day. At the time of DC she is getting 30 units of Glargine daily in the AM. BS at is ranging from 138-217 for the 48 hours prior to discharge. Other BS's are in the 100's with no hypoglycemia. Good was agreeable to getting a RX for Glargine. She was educated by nursing in how to administer insulin. Her eyesight is very poor and she needs a magnifying glass to be able to dial in the dose accurately. She will need to have a table mounted magnifying glass so that her hands are free to administer the insulin. She will need supervision for the first couple weeks to make sure she is accurately dosing the insulin. She is going to have [facility] for PT/SN at ID from rehab. She actually tells me that she has a table magnifier at home. She tells me that she feels she will be OK giving her own insulin at home but, she has friends who will supervise and make sure she is getting the right dose for the first week post DC. Good also was agreeable to getting a RX for Lisinopril. The BP is controlled on 20 mg daily and she has no cough or other adverse side effects. She understands about the increased risk for Idehiren had a heme + stool at admission to rehab but, she has a known hx of hemorrhoids. Her HGB has been stable and has actually improved from 10.6 at admission to rehab to 11.5 at ID. She has had no nausea, epigastric pain, black tarry stools and no abd pain. She is taking Eliquis 2.5 mg BID for DVT prophylaxis. She is agreeable to taking this at ID to finish out 30 days of pharmacologic DVT prophylaxis post ORIF of the R hip fx. Good has done very well on rehab. Her pain is adequately controlled with Tylenol 1,000 mg Q8H at the time of DC. She took only 4 doses of oxycodone since admission to rehab and the last time she took oxycodone was on 02/03/2025. She was given a prescription for 5 mg tablets, #10, and will take 1 p.o. every 6 hours as needed for pain at home. At the time of discharge she is able to ascend/descend six 4 inch steps with 2 handrails at standby assist. She is able to do a 6 inch curb step with a front wheeled walker at contact-guard assist x 1. She can do 8 sit to stands in 30 seconds at mod I. She has ambulated up to 130 feet with a front wheeled walker at standby assist with a wheelchair follow. She does fatigue at the longer distances. She has ambulated in her room at [facility] up to 25' with no assist and no falls or LOB. She is independent with eating and she is modified independent with grooming, bathing, toilet transfer, toileting and lower body dressing. She is independent with upper body dressing. She is supervision for tub/shower transfer. Good has a good support system from her nephew, neighbors and friends. She will have [facility] for PT and SN at ID. A FWW was delivered to her room prior to ID. He nephew will be transporting her home. She has follow up appts scheduled with Dr. Swift and Dr. Nesbitt. Physical Exam Const alert, oriented x3 and no apparent distress Constitutional Narrative: Sitting in the recliner at the bedside and appears comfortable. General Appearance: cooperative HEENT HEENT Narrative: MM are more moist than at admission and she has good fluid intake. No thrush. Denies mouth pain. Tongue protrudes on the midline. May missing teeth and many broken, carious teeth. Eye sight is very poor due to glaucoma and macular degeneration. Head and Scalp: normal to inspection, normocephalic and atraumatic Eyes EOMs intact bilaterally, conjunctivae normal and no scleral icterus Eyes Narrative: No discharge from the eyes. Visual Acuity: other Other Details: severe vision loss ......uses a magnifying glass to read. Neck no lymphadenopathy, supple, No nodes and no carotid bruits Neck Narrative: Brisk carotid upstroke with good pulse volume bilaterally. General: trachea midline Chest Chest: symmetrical chest wall rise Resp normal respiratory effort, normal air movement, no use of accessory muscles and clear to auscultation bilaterally Effort and Inspection: able to speak in complete sentences Cardio regular rate, regular rhythm, S1 normal heart sound, S2 normal heart sound, no murmurs, no rub and no gallops Cardio Narrative: The rhythm is regular but, she is having a lot of ectopy. EKG at presentation to the ED showed NSR with PAC's. She denies any hx of AF. A repeat EKG on rehab also revealed NSR with PAC's. Jugular Venous Distention: Negative for JVD GI normal to inspection, nondistended, normoactive bowel sounds, soft to palpation and non-tender GI Narrative: No guarding with palpation no CVA tenderness Back/Spine no thoracic nor lumbar tenderness Cervical Spine: normal cervical lordosis Extremity no calf tenderness Extremity Narrative: No clubbing and no cyanosis. She has trace edema of the R ankle only. Skin no jaundice Rashes: no rashes Neuro oriented x3, CN's II-XII intact bilaterally, moves all extremities and no focal motor deficits Neuro Narrative: She has numbness in both distal lower extremities but denies pain. Psych mental status grossly normal, thought process normal, cooperative, affect normal, speech normal, activity/motor behavior normal, denies hallucinations and denies suicidal ideation Appearance: grossly normal, appropriate and well kempt Attitude: calm, engaged and No agitated Activity / Motor Behavior: appropriate eye contact Weight / BMI Weight Weight: 156 lb 4.924 oz Body Mass Index (BMI) 28.8 ABG / Lab / Microbiology Data 02/06/25 06:38 02/06/25 06:38 Laboratory: Laboratory Results - last 24 hr 02/06/25 21:41: POC Glucose 217 H 02/07/25 11:21: POC Glucose 113 H Microbiology: Microbiology 01/27/25 21:30 Stool Stool Occult Blood ([place]) - Final Occult Blood Positive D/C Instructions Ice area for (Minutes): 10 (ice after exercise to assist with pain control) Weight Bearing Status: Full weight bearing Keep extremity elevated above heart level: Right Leg Call your doctor if your incision/area has: Continuous Slow Oozing, Sudden Increased Bleeding, Increased Pain/ Swelling, Increased Redness, Foul Smelling Discharge, Swelling at the incision site and - (Ok to leave open to air. ) Call your doctor if you observe: Fever of 101 or Higher, Shortness of breath, Dizziness, Fainting spells, Swelling in the ankles, Chest pain, Increased palpitations (irregular heartbeat), Calf discomfort and Uncontrolled pain Suture Line Care: Avoid Pulling/Pushing and Avoid Pinching/Bending Cleanse incision/area with: Soap & Water Additional Dressing/Incision Instructions: OK to leave the incisions open to air. DC O2, CPAP, BIPAP Needs Home O2 Discharge instructions: No Pending Tests Upon Discharge: none Please Follow Up With: Apolinar Swift DO When: Appt is listed later in this document. You also have an appt with Dr. Nesbitt scheduled. Meaningful Use Info Meaningful Use Meaningful Use Diagnoses (Choose all that apply): None applicable Discharge Plan Admission Admit Date/Time: 01/27/25 14:24 Primary Reason for Your Visit: Debility due to fall/R hip fracture Attending Provider: Haley Marcos Primary Care Provider: Yvonne Nesbitt Instructions Patient Instructions: Caring for Your Incision Additional Instructions / Restrictions: 1. Having surgery for a fractured hip increases risk for blood clots in the leg for about a month. You are taking a medication called Eliquis (also called Apixaban) twice a day to help prevent blood clots. You will need to take 17 more days of this drug after you leave rehab to finish out 30 days post op. 2. Your BP is well controlled on a medication called Lisinopril. Uncontrolled high blood pressure increases the risk for strokes and heart attacks and kidney failure. You have had no adverse side effects with this medication. I recommend you continue to take this medication following DC from rehab. 3. You blood sugars are doing much better than they were at home on just 1 shot of insulin daily. With uncontrolled blood sugars your risk for infection after a surgical procedure increases. I have seen people who get infections in the surgical site after joint surgery. Sometimes they need to take antibiotics for 6 weeks to clear the infection up and sometimes the hardware they used to fix the fracture needs to be removed. It is not an easy procedure. I recommend you continue taking the insulin to help prevent an infection in the surgical site. 4. You have mild anemia due to blood loss related to the fracture and surgery. This should correct itself in a few months. When we checked your stool for blood it was positive but, the anemia is not getting any worse so the blood in the stool may be due to hemorrhoids. 5. No driving until Dr. Swift and the physical therapist tell you it is OK to drive. Use the walker until the physical therapist tells you that it is OK to transition to a cane. 6. Do the exercises given to you by the therapists twice a day. Do not sit for longer than 1 hour without getting up and taking a walk around your house. 7. I am giving you a prescription for a few pain pills to have at home. Your pain at the time of Discharge from rehab is pretty well controlled on Tylenol 1,000 mg every 8 hours. sometimes when people are home they tend to do more and the pain gets worse. I want you to have something to take should you need it. 8. If you have any questions after you leave rehab please do not hesitate to call me. OFFICE: [phone] CELL: [phone] NURSES STATION ON REHAB: [phone] Discharge Orders/Prescriptions Prescriptions: New Arthritis Pain Compound 2 click topical BID Qty: 1 0RF Rx Instructions: apply to panful joints acetaminophen 500 mg Tablet 1,000 mg PO Q8H PRN PRN (Reason: fever or pain) Qty: 90 0RF insulin glargine-yfgn 100 unit/mL (3 mL) Insulin Pen 30 unit subcut 0700 Qty: 3 5RF calcium carbonate-vitamin D3 [Calcium 600 with Vitamin D3] 600 mg-12.5 mcg (500 unit) capsule 1 cap PO BID Qty: 60 5RF Rx Instructions: Take with food (DME) pen needle, diabetic, safety 30 gauge x 3/16 needle See Rx Instructions .Route Qty: 100 5RF Rx Instructions: As directed Eliquis 2.5 mg tablet 2.5 mg PO BID Qty: 34 0RF Rx Instructions: Take 1 tab twice daily until gone (17 days) to prevent blood clots Continued latanoprost 0.005 % drops 1 drp ophthalmic (eye) BID dorzolamide-timolol 22.3-6.8 mg/mL drops 1 drp ophthalmic (eye) QHS lisinopril 20 mg Tablet 20 mg PO DAILY Qty: 30 5RF Changed oxycodone 5 mg Tablet 5 mg PO Q6H PRN (Reason: pain) 7 Days Qty: 10 0RF Discontinued acetaminophen 325 mg Tablet 650 mg PO Q6H PRN PRN (Reason: Pain 1-10 Or Fever >100.7) Qty: 0 0RF calcium carbonate 200 mg calcium (500 mg) Tablet,Chewable 500 mg PO TIDCM Qty: 30 0RF ergocalciferol (vitamin D2) [Vitamin D2] 1,250 mcg (50,000 unit) Capsule 1,250 mcg PO Q7D Qty: 0 0RF Glucagon Emergency Kit (human) 1 mg Recon Soln 1 mg IM X1 PRN (Reason: Hypoglycemia) Qty: 0 0RF Eliquis 5 mg Tablet 2.5 mg PO BID Qty: 0 0RF insulin lispro [Humalog KwikPen Insulin] 100 unit/mL Insulin Pen See Protocol subcut ACHS Qty: 0 0RF Protocol: 2. Sliding Scale Insulin Low-Med Dosing Condition: 150-209 mg/dl = 1 unit Condition: 210-269 mg/dl = 2 units Condition: 270-329 mg/dl = 3 units Condition: 330-389 mg/dl = 4 units Condition: 390-449 mg/dl = 5 units Condition: Greater than 449 call physician Protocol Text: Suggested for: - Patients on Total Daily Insulin Dose of 28-36 units - Average body habitus patients LOW MEDIUM DOSING ALGORITHM insulin glargine-yfgn 100 unit/mL (3 mL) Insulin Pen 25 unit subcut BID Qty: 0 0RF sennosides-docusate sodium [Stimulant Laxative Plus] 8.6-50 mg Tablet 2 tab PO BID Qty: 0 0RF Referrals / Follow Up: Yvonne Nesbitt DO [Primary Care Provider] - 02/20/25 10:15 am Apolinar Swift DO [Med Staff - Active Staff] - 02/10/25 1:15 pm Disposition Disposition (needs filled in before D/C Order can be placed): Home Health Service Charges/Coding Visit Charges Inpatient E&M: 75498 Disch Hosp
--- NOTE | 2025-02-06 13:29 | CASEMGMT ---
Social Work IDT met with patient at bedside and nephew via conference call for Team meeting. Discussed patient's progress in PT/OT/SN/MD. Medicare DC date is set for 02/07. JARETH confirmed DC needs for [facility] PT/SN and FWW. FWW will be delivered to pt's room prior to DC. SW already provided list of [facility] agencies and inquired about pt's preference. Pt prefers [facility]. SW educated HHC agency will contact pt for SOC date date, but typically 2-3 days after DC, pending PCP signing orders. Pt expressed understanding. - JARETH sent referral to [facility] via [employer]. SW phoned referral to [facility] for PT/SN. Plan: DC home alone 02/07, [facility] PT/SN, FWW Glendy MONTIELW
[2025-02-06 18:00] VITALS: BP 125/65; PULSE 89; RESP 16; TEMP 37.2; O2SAT 99
--- NOTE | 2025-02-06 18:03 | PCM.PROGNOTE ---
Subjective Subjective Titus was seen on team rounds today. Her nephew Cory who is her POA participated by phone. All his questions were answered. Afebrile Blood pressure is mostly controlled with only occasional systolic hypertension. No hypotension and denies lightheadedness. Maintaining appropriate oxygen saturation on room air. The blood sugar record was reviewed. Blood sugars over the past 48 hours have ranged from 109-204. Tends to be higher at HS. FBS is always good. No hypoglycemia. All lab from this morning was personally reviewed. Sodium is 141 and the potassium is 4.2. The BUN is 14 with a creatinine of 0.58 and a GFR of 88. Calcium is within normal limits. White blood cell count is normal at 7.7 and hemoglobin is 11.5, up from 10.6 at admission to rehab. Platelets are mildly increased at 514,000. Pain is adequately controlled with Tylenol 1 g p.o. every 8 hours and she has not taken an oxycodone since 02/03/2025. She is agreeable to having a few oxycodone to take home should she have pain when she is home. Her nephew is purchasing Tylenol fo her to take at home. Titus is agreeable to taking Eliquis for another 17 days to complete 30 days of pharmacologic DVT prophylaxis. She also is willing to get a RX for lisinopril and glargine filled. RX's were sent to the retail pharmacy. She will need [place]. Objective Data Objective Data Vital Signs: Vital Signs Temp Pulse Resp BP Pulse Ox O2 Del Method 97.7 F L 101 H 20 H 140/73 H 96 Room Air 02/06/25 06:00 02/06/25 06:00 02/06/25 06:00 02/06/25 06:00 02/06/25 06:00 02/06/25 09:07 Oxygen Delivery Method Room Air Weight: 156 lb 4.924 oz Body Mass Index (BMI) 28.8 Intake & Output: Intake and Output for Last 24 Hours 02/04/25 02/05/25 02/06/25 23:59 23:59 23:59 Intake Total 1640 / 1640 2260 / 2260 750 / 750 Output Total 3000 / 3000 2900 / 2900 1200 / 1200 Balance -1360 / -1360 -640 / -640 -450 / -450 Lab / Micro Data 02/06/25 06:38 02/06/25 06:38 Labs: Laboratory Results - last 24 hr 02/05/25 21:44: POC Glucose 138 H 02/06/25 06:38: WBC 7.7, RBC 3.98 L, Hgb 11.5 L, Hct 35.5 L, MCV 89.2, MCH 28.9, MCHC 32.4, RDW Std Deviation 44.0 H, RDW Coeff of Jasmin 13.5, Plt Count 514 H, MPV 9.7, Sodium 141, Potassium 4.2, Chloride 103, Carbon Dioxide 26.0, Anion Gap 12, BUN 14, Creatinine 0.58 L, Estim Creat Clear Calc 46.55 L, Est GFR (MDRD) Non-Af 88, BUN/Creatinine Ratio 23.4 H, Glucose 78, Calcium 9.5 02/06/25 11:17: POC Glucose 109 H Micro: Microbiology 01/27/25 21:30 Stool Stool Occult Blood ([place]) - Final Occult Blood Positive Physical Exam Const alert, oriented x3 and no apparent distress General Appearance: cooperative Orientation / Consciousness: Negative for confused HEENT Mouth: dry mucous membranes Resp normal respiratory effort and clear to auscultation bilaterally Effort and Inspection: Negative for tachypneic Cardio regular rhythm and no gallops Cardio Narrative: Still having a lot of premature beats. She can not feel them and denies palpitations. GI normal to inspection, nondistended, normoactive bowel sounds, soft to palpation and non-tender Extremity Negative for no calf tenderness Extremity Narrative: trace edema of the R ankle Skin Skin Narrative: The incisions are intact and edison are in place. There is no dehiscence of the incisions and there is no discharge. There is a small amount of redness in the more proximal incision but there is no increased warmth to touch and I suspect this is just due to reaction to the edison. She has an appointment with Dr. Swift to have the edison removed on Monday. Rashes: no rashes Neuro CN's II-XII intact bilaterally, no focal motor deficits and no sensory deficits noted Psych thought process normal, cooperative and affect normal Appearance: appropriate Assessment & Plan Assessment/Plan (1) Physical debility: (2) Fall: QUALIFIERS: Encounter type: subsequent encounter Qualified Code(s): W19.XXXD - Unspecified fall, subsequent encounter PLAN: Ground level fall. (3) Closed fracture of right hip: QUALIFIERS: Encounter type: initial encounter Qualified Code(s): S72.001A - Fracture of unspecified part of neck of right femur, initial encounter for closed fracture (4) History of open reduction and internal fixation (ORIF) procedure: PLAN: Cephalomedullary nailing on 01/25/25 by Paul Gorman. Incisions are intact at the time of DC from rehab. No DC from the incisions. There is a small amount of rednessdue to reaction to the edison/traction but, no increased warmth to touch. She has an appt with Dr. Swift on Monday to remove edison. (5) Acute blood loss as cause of postoperative anemia: PLAN: Hemoglobin was 10.6 at arrival to inpatient rehab and on 02/06/2025 it is 11.5. She had a heme + stool but, I suspect this is due to hemorrhoids. No epigastric pain, no nausea and no vomiting. No hx of PUD. (6) Heme positive stool: (7) Hyperlipidemia: QUALIFIERS: Hyperlipidemia type: unspecified Qualified Code(s): E78.5 - Hyperlipidemia, unspecified PLAN: Refuses medication. (8) Vitamin D deficiency: PLAN: She will continue to take the Vitamin D supplement she has been taking at home prescribed by Dr. Nesbitt. Vitamin D level at admission to the hospital was within normal limits at 52.8. (9) HTN (hypertension): QUALIFIERS: Hypertension type: primary hypertension Qualified Code(s): I10 - Essential (primary) hypertension PLAN: Controlled with Lisinopril 20 mg daily at DC from rehab. No cough and no lightheadedness. (10) Uncontrolled type 2 diabetes mellitus: QUALIFIERS: Glycemic state: with hyperglycemia Qualified Code(s): E11.65 - Type 2 diabetes mellitus with hyperglycemia PLAN: Blood sugars are much improved with Glargine 30 units daily in the AM and a 2000 calorie carb consistent diet. No hypoglycemia. Pt was agreeable to a RX for insulin at DC from rehab. She was instructed by nursing on how to give the insulin. (11) PAC (premature atrial contraction): PLAN: EKG showed NSR with PAC's and NS ST and T wave changes. PAC's have been frequent. PLAN: Plan 1. Discharge to home tomorrow with home health care 2. DME needed is a front wheeled walker 3. Nephew will be transporting her home. 4. Prescriptions for lisinopril, glargine, pen needles and oxycodone were sent to the [facility] retail pharmacy. 5. She will follow-up with Dr. Nesbitt for primary care and with Dr. Swift for orthopedics. 6. Will resume the calcium and vitamin D she was taking at home. 7. Has not had a bone mineral density test in many years but she asked me about this today and I recommended that she have 1 done in the [id number] future to assess her bone mineral density and possible need for medication in addition to calcium and vitamin D to build bone. Charges/Coding Visit Charges Inpatient E&M: 20549 Subs Hosp L2
[2025-02-06] MEDS: Latanoprost 0.005% 1 Bottle 1 DRP OPHTHALMIC (21:37)
[2025-02-06 21:51] VITALS: RESP 16
[2025-02-07 06:00] VITALS: BP 143/80; PULSE 102; RESP 18; TEMP 37.1; O2SAT 96
[2025-02-07] MEDS: Arthritis Pain Compound 60 CLICK TUBE TOPICAL (07:49)
[2025-02-07] MEDS: APIXABAN 2.5 MG TABLET (WCH) PO (07:49)
[2025-02-07] MEDS: Dorzolamide HCL/Timolol 10 ml Bottle 1 DRP EACH EYE (07:49)
[2025-02-07] MEDS: Insulin Glargine-YFGN 100 UNIT/ML Pen 30 UNIT SC (07:50)
--- NOTE | 2025-02-07 13:45 | NURSING ---
discharged home with family. discharge instruction, medications and appointments reviewed with pt and family, denies questions or conerns
[2025-02-07 13:46] VITALS: BP 130/78; PULSE 76; RESP 17; TEMP 36.6; O2SAT 96
== END 2025-02-07 13:49 | disposition home health service (06) | DRG 560 ==
PROVIDERS: Admitting Provider Internal Medicine; PCP Internal Medicine; Referring Provider Internal Medicine; Visit Provider Internal Medicine
DX: S72.144D Nondisplaced intertrochanteric fracture of right femur, subsequent encounter for closed fracture with routine healing (principal); D62 Acute posthemorrhagic anemia; E11.65 Type 2 diabetes mellitus with hyperglycemia; I10 Essential (primary) hypertension; E11.319 Type 2 diabetes mellitus with unspecified diabetic retinopathy without macular edema; E78.5 Hyperlipidemia, unspecified; E55.9 Vitamin D deficiency, unspecified; H35.30 Unspecified macular degeneration; Z79.4 Long term (current) use of insulin; W18.30XD Fall on same level, unspecified, subsequent encounter; R19.5 Other fecal abnormalities; I49.1 Atrial premature depolarization; H40.9 Unspecified glaucoma; Z79.899 Other long term (current) drug therapy; S72.401D Unspecified fracture of lower end of right femur, subsequent encounter for closed fracture with routine healing
CPT/HCPCS: 36415; 80048; 80053; 82274; 82962; 83735; 84100; 85025; 85027; 93005; 97110; 97116; 97162; 97166; 97530; 97535; 97802; 97803; A4216

== ENCOUNTER → 2025-06-26 | Outpatient (CLI) | payer MEDICARE, OTHER, SELFPAY ==
[2025-06-26 12:29] LABS: Hematocrit 38.9 % (37-47); Hemoglobin 12.5 g/dL (12.0-15.0); Immature Granulocytes Count 0.020 X10^3/uL (0.0-0.0); Mean Corp Hgb Conc 32.1 g/dL (32-36); Mean Corpuscular Volume 89.2 fL (81-99); Mean Platelet Vol. 12.2 fl (6.2-12.0); NRBC Flagged by Analyzer 0 % (0-5); Platelet Count 230 K/mm3 (150-450); RBC Distribution Width CV 13.7 % (11.6-14.6); RBC Distribution Width SD 45.0 fl (35.1-43.9); Red Blood Count 4.36 M/mm3 (4.2-5.4); White Blood Count 6.3 K/mm3 (4.4-11.0)
[2025-06-26 12:44] LABS: Microalbumin,Random Urine 112.0 mg/L (<20 mg/L)
[2025-06-26 13:10] LABS: AST(SGOT) 17 U/L (<=31); Alanine Aminotransfer ALT/SGPT 18 U/L (<=34); Albumin, Serum 4.3 g/dL (3.4-4.8); Alkaline Phosphatase 88 U/L (35-104); Anion Gap 11 (5-15); BUN 19 mg/dL (4-19); BUN/Creat Ratio 33.4 RATIO (10-20); Calcium,Total 9.5 mg/dL (7.6-11.0); Carbon Dioxide 25.9 mmol/L (21.0-32.0); Chloride 99 mmol/L (98-108); Cholesterol 215 mg/dL (<=200); Globulin 2.7 g/dL (2.2-4.2); Glucose 361 mg/dL (70-99); Low Density Lipoprotein Calc. 101 mg/dL; Potassium 4.4 mmol/L (3.3-5.1); Triglycerides 288 mg/dL; Very Low Density Lipoprotein 58 mg/dL (5-40); Vitamin D,25 Hydroxy 43.2 ng/mL (30-100); cholesterol:hdl ratio screen 3.26
== END | disposition home or self-care (01) ==
LOC: CIMLAB 10:43
PROVIDERS: PCP Internal Medicine; Referring Provider Internal Medicine; Visit Provider Internal Medicine
DX: E11.29 Type 2 diabetes mellitus with other diabetic kidney complication (principal); E11.65 Type 2 diabetes mellitus with hyperglycemia; E55.9 Vitamin D deficiency, unspecified; R80.9 Proteinuria, unspecified; D62 Acute posthemorrhagic anemia
CPT/HCPCS: 36415; 80053; 80061; 82043; 82306; 83036; 84443; 85025